=== PATIENT | female | born 1950 | race Caucasian/White ===

== ENCOUNTER 2017-09-01 15:03 | Outpatient (CLI) | payer MEDICARE, MEDICAID ==
[2017-09-01 17:24] LABS: Prothrombin Time 12.8 SEC (12.0-14.7)
[2017-09-01 17:40] LABS: Hemoglobin 10.9 g/dL (12.0-16.0); Mean Corpuscular HGB CONC 33.5 g/dL (32.0-36.0); Mean Corpuscular Hemoglobin 33.3 pg (27.0-31.0); Mean Corpuscular Volume 99.4 fl (81.0-99.0); Mean Platelet Volume 6.5 fL (7.4-10.4); Platelet Count 371 thou/uL (130-400); RBC Distribution Width 12.1 % (11.5-14.5); Red Blood Cell (RBC) Count 3.29 mill/uL (4.20-5.40); White Blood Cell (WBC) Count 11.7 thou/uL (4.8-10.8)
== END 2017-09-01 15:04 | disposition home or self-care (01) ==
LOC: MADLAB 15:03
PROVIDERS: ATTEND Family Medicine
DX: D64.9 Anemia, unspecified (principal)
CPT/HCPCS: 85027; 85610

== ENCOUNTER 2019-04-13 19:18 | Emergency (ER) | payer MEDICARE, MEDICAID ==
[2019-04-13] MEDS ORDERED: Sodium Chloride 0.9% 1,000 ML ONE ×2 (19:39→21:03)
[2019-04-13 19:58] LABS: #Basophils 0.1 thou/uL (0.0-0.2); #Lymphocytes 1.3 thou/uL (1.20-3.40); #Neutrophils 6.1 thou/uL (1.40-6.50); %Basophils 0.9 % (0.0-1.0); %Eosinophils 0.4 % (0.0-10.0); %Lymphocytes 15.5 % (21.0-51.0); %Monocytes 11.3 % (0.0-10.0); %Neutrophils 71.9 % (42.0-75.0); Mean Corpuscular HGB CONC 35.5 g/dL (32.0-36.0); Mean Corpuscular Hemoglobin 30.3 pg (27.0-31.0); Mean Corpuscular Volume 85.5 fL (78.0-98.0); Platelet Count 250 thou/uL (130-400); RBC Distribution Width 12.3 % (11.5-14.5); Red Blood Cell (RBC) Count 4.27 mill/uL (4.20-5.40); White Blood Cell (WBC) Count 8.5 thou/uL (4.8-10.8)
--- NOTE | 2019-04-13 20:07 | RAD ---
XR Chest 1 View Portable History: Altered mental status Comparison: Radiograph 2017 Findings: Progressive scarring lung apices. Heart size is enlarged. Mild pulmonary venous congestion. No acute osseous abnormality. Right reverse total shoulder arthroplasty. Impression: Cardiomegaly and mild pulmonary venous congestion.
--- NOTE | 2019-04-13 20:09 | CT ---
CT Brain WO Con History: Altered mental status Comparison: None. Findings: No acute hemorrhage or infarct. No midline shift or mass effect. 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 Subtle basal ganglia calcifications. Calvarium is intact. Paranasal sinuses and mastoids are clear. Globes are intact. Impression: No acute intracranial abnormality.
[2019-04-13 20:18] LABS: ALT (SGPT) 21 U/L (8-55); AST (SGOT) 44 U/L (5-34); Acetaminophen Less than 6.0 mcg/mL (10.0-30.0); Albumin 3.3 g/dL (3.4-4.8); Alcohol Less than 10 mg/dL (Less than 10); Alkaline Phosphatase 84 U/L (40-150); Anion Gap 21 mmol/L (10-20); BUN (Urea Nitrogen) 14 mg/dL (9.8-20.1); Bilirubin, Total 0.9 mg/dL (0.2-1.2); CK (CPK) 1126 U/L (29-168); Calc. Creatinine Clearance 0 mL/min (70-130); Calcium 7.4 mg/dL (7.8-10.44); Carbon Dioxide 24 mmol/L (23-31); Chloride 95 mmol/L (98-107); Estimated GFR-MDRD 22; Globulin 2.6 g/dL (2.4-3.5); Glucose 63 mg/dL (80-115); Protein, Total 5.9 g/dL (6.0-8.3); Salicylate Less than 8.0 mg/dL (15.0-30.0); Sodium 138 mmol/L (136-145)
[2019-04-13 20:36] LABS: Bilirubin Negative (Negative); Blood, Urine Moderate (Negative); Clarity Clear (Clear); Glucose, Urine (Dipstick) Negative (Negative); Leukocyte Negative (Negative); Nitrite Negative (Negative); Protein, Urine (Dipstick) 30 mg/dL (Neg-Trace); Urobilinogen 0.2 mg/dL (Less than 2)
[2019-04-13 20:39] LABS: Potassium 1.6 mmol/L (3.5-5.1)
[2019-04-13 20:42] LABS: Bacteria/HPF 1+ HPF (None Seen); Squamous Epithelial 0-3 HPF (0-3)
[2019-04-13 20:44] LABS: Amphetamine Not Detected (NotDetected); Barbiturates Screen Not Detected (NotDetected); Benzodiazepine Screen Not Detected (NotDetected); Cocaine Metabolite Screen Not Detected (NotDetected); Medtox Control Line Valid? VALID (VALID); Methadone Not Detected (NotDetected); Methamphetamine Not Detected (NotDetected); Opiate Screen Detected (NotDetected); Oxycodone Screen Not Detected (NotDetected); Phencyclidine (PCP) Not Detected (NotDetected); THC/Cannabinoid Screen Not Detected (NotDetected); Tricyclic Screen Not Detected (NotDetected)
[2019-04-13] MEDS ORDERED: Potassium Chloride 20 MEQ/100 ML PREMIX BAG ONE (21:03)
== END 2019-04-13 21:53 | disposition short-term general hospital (02) ==
LOC: MADERS 19:18
DX: T67.0XXA Heatstroke and sunstroke, initial encounter (principal); R50.9 Fever, unspecified; E87.6 Hypokalemia; M62.82 Rhabdomyolysis; M81.0 Age-related osteoporosis without current pathological fracture; E78.5 Hyperlipidemia, unspecified; E78.00 Pure hypercholesterolemia, unspecified; I10 Essential (primary) hypertension; J44.9 Chronic obstructive pulmonary disease, unspecified; D64.9 Anemia, unspecified; F41.9 Anxiety disorder, unspecified; F17.210 Nicotine dependence, cigarettes, uncomplicated; Z79.899 Other long term (current) drug therapy; Z79.82 Long term (current) use of aspirin; Z79.84 Long term (current) use of oral hypoglycemic drugs; Z79.51 Long term (current) use of inhaled steroids
CPT/HCPCS: 36415; 70450; 71045; 80053; 80306; 80307; 81003; 81015; 82550; 84443; 85025; 87040; 87077; 87086; 87186; 93005; 96361; 96365; J3480; J7050

== ENCOUNTER 2019-04-27 16:12 | Emergency (ER) | payer MEDICARE, OTHER ==
[~2019-04-27 16:12] MED LIST: Sodium Chloride 0.9% 100 ML BAG ONE
[2019-04-27 16:35] LABS: #Basophils 0.1 thou/uL (0.0-0.2); #Lymphocytes 1.5 thou/uL (1.20-3.40); #Neutrophils 5.5 thou/uL (1.40-6.50); %Basophils 1.3 % (0.0-1.0); %Eosinophils 0.3 % (0.0-10.0); %Lymphocytes 18.9 % (21.0-51.0); %Monocytes 11.7 % (0.0-10.0); %Neutrophils 67.8 % (42.0-75.0); Hemoglobin 13.7 g/dL (12.0-16.0); Mean Corpuscular HGB CONC 34.7 g/dL (32.0-36.0); Mean Corpuscular Hemoglobin 30.1 pg (27.0-31.0); Mean Platelet Volume 5.6 fL (7.4-10.4); Platelet Count 403 thou/uL (130-400); RBC Distribution Width 13.6 % (11.5-14.5); Red Blood Cell (RBC) Count 4.54 mill/uL (4.20-5.40); White Blood Cell (WBC) Count 8.1 thou/uL (4.8-10.8)
[2019-04-27] MEDS ORDERED: Sodium Chloride 0.9% 1,000 ML ONE ×2 (16:38→17:21)
[2019-04-27 17:03] LABS: ALT (SGPT) 17 U/L (8-55); AST (SGOT) 29 U/L (5-34); Albumin 3.6 g/dL (3.4-4.8); Alkaline Phosphatase 98 U/L (40-150); Anion Gap 25 mmol/L (10-20); BUN (Urea Nitrogen) 11 mg/dL (9.8-20.1); CK (CPK) 486 U/L (29-168); Calc. Creatinine Clearance 0 mL/min (70-130); Calcium 7.7 mg/dL (7.8-10.44); Carbon Dioxide 32 mmol/L (23-31); Chloride 77 mmol/L (98-107); Estimated GFR-MDRD 23; Globulin 2.9 g/dL (2.4-3.5); Glucose 83 mg/dL (80-115); Magnesium 1.7 mg/dL (1.6-2.6); Protein, Total 6.5 g/dL (6.0-8.3); Sodium 132 mmol/L (136-145)
[2019-04-27 17:05] LABS: Bilirubin Negative (Negative); Blood, Urine Moderate (Negative); Clarity Slightly Cloudy (Clear); Glucose, Urine (Dipstick) Negative (Negative); Leukocyte Trace (Negative); Nitrite Negative (Negative); Protein, Urine (Dipstick) 30 mg/dL (Neg-Trace); Urobilinogen 0.2 mg/dL (Less than 2)
[2019-04-27 17:16] LABS: Bacteria/HPF 4+ HPF (None Seen); RBC/HPF 0-3 HPF (0-3); Squamous Epithelial None Seen HPF (0-3)
--- NOTE | 2019-04-27 17:19 | RAD ---
Exam: Chest one view HISTORY:Altered mental status Comparison: 04/13/2019 FINDINGS: Cardiac silhouette: Normal Aorta: Atherosclerosis of the aortic knob Pulmonary vessels: Normal Costophrenic angles: Clear LUNGS: No masses or consolidation.. There are chronic changes. Stable right apical thickening. Pneumothorax: None Osseous abnormalities: None IMPRESSION: No acute cardiopulmonary process.
[2019-04-27] MEDS ORDERED: Calcium Gluc 4.6 MEQ/10 ML (100 MG/ML) ONE (17:21)
[2019-04-27 17:42] LABS: Potassium 1.7 mmol/L (3.5-5.1)
[2019-04-27] MEDS ORDERED: NS 0.9% w/ 40 MEQ KCL 1,000 ML IV ONE (17:53)
[2019-04-27] MEDS ORDERED: Potassium Chloride 10 MEQ TAB ONE (17:55)
[2019-04-27] MEDS ORDERED: cefTRIAXone\\ROCEPHIN 1 GM VIAL ONE (18:03)
== END 2019-04-27 18:32 | disposition short-term general hospital (02) ==
LOC: MADERS 16:12
DX: T67.5XXA Heat exhaustion, unspecified, initial encounter (principal); E83.51 Hypocalcemia; E87.1 Hypo-osmolality and hyponatremia; I49.3 Ventricular premature depolarization; M62.82 Rhabdomyolysis; E87.6 Hypokalemia; N30.90 Cystitis, unspecified without hematuria; M81.0 Age-related osteoporosis without current pathological fracture; E78.5 Hyperlipidemia, unspecified; I10 Essential (primary) hypertension; J44.9 Chronic obstructive pulmonary disease, unspecified; F41.9 Anxiety disorder, unspecified; F17.210 Nicotine dependence, cigarettes, uncomplicated; Z79.899 Other long term (current) drug therapy; Z79.84 Long term (current) use of oral hypoglycemic drugs
CPT/HCPCS: 51702; 71045; 80053; 81003; 81015; 82550; 83605; 83735; 84484; 85025; 93005; 96361; 96365; 96367; 96368; A4353; J0696; J3480; J3490; J7050

== ENCOUNTER 2020-06-08 20:49 | Emergency (ER) | payer MEDICARE, OTHER ==
--- NOTE | 2020-06-08 22:21 | CT ---
Exam: Head CT without contrast HISTORY: Worsening dizziness COMPARISON: 04/13/2019 FINDINGS: Hemorrhage: No intraparenchymal hemorrhage or extra-axial hematoma. Brain parenchyma: Cortical sibley-white matter differentiation is preserved. No mass effect or midline shift. Basilar cisterns are patent. Ventricular system: Ventricles and sulci are patent and symmetric. Calvarium: Intact. Sinuses and mastoid air cells: Adequate aeration. IMPRESSION: No acute intracranial process.
[2020-06-08 22:23] LABS: Hemoglobin 8.1 g/dL (12.0-16.0); Mean Corpuscular HGB CONC 30.5 g/dL (32.0-36.0); Mean Corpuscular Hemoglobin 24.8 pg (27.0-31.0); Mean Corpuscular Volume 81.4 fL (78.0-98.0); Mean Platelet Volume 5.4 fL (7.4-10.4); Platelet Count 602 thou/uL (130-400); RBC Distribution Width 15.4 % (11.5-14.5); Red Blood Cell (RBC) Count 3.28 mill/uL (4.20-5.40); White Blood Cell (WBC) Count 20.6 thou/uL (4.8-10.8)
[2020-06-08 22:32] LABS: ALT (SGPT) 17 U/L (8-55); AST (SGOT) 17 U/L (5-34); Albumin 3.4 g/dL (3.4-4.8); Alkaline Phosphatase 83 U/L (40-110); Anion Gap 17 mmol/L (10-20); BUN (Urea Nitrogen) 14 mg/dL (9.8-20.1); Bilirubin, Total 0.6 mg/dL (0.2-1.2); Calc. Creatinine Clearance 0 mL/min (70-130); Carbon Dioxide 22 mmol/L (23-31); Chloride 103 mmol/L (98-107); Estimated GFR-MDRD 24; Globulin 3.3 g/dL (2.4-3.5); Glucose 92 mg/dL (80-115); Magnesium 1.7 mg/dL (1.6-2.6); Protein, Total 6.7 g/dL (6.0-8.3); Sodium 140 mmol/L (136-145)
[2020-06-08 22:38] LABS: Hypochromia SLIGHT = 6-15 cells (100X) (0-5/hpf); Lymphocytes 4 % (21-51); MDiff Complete? YES; Monocytes 9 % (0-10); Neutrophil 87 % (42-75); Platelet Morphology Comment Appears Increased
--- NOTE | 2020-06-08 22:48 | RAD ---
Exam: Chest one view HISTORY:Cough. Elevated white blood cell count Comparison: 04/27/2019 FINDINGS: Cardiac silhouette: Normal Aorta: Atherosclerotic process Pulmonary vessels: Normal Costophrenic angles: Clear LUNGS: Chronic changes involving the lung apices. Pneumothorax: None Osseous abnormalities: Redemonstration of a right humeral prosthesis Incidentals: Loop recorder projects over the left hemithorax IMPRESSION: Chronic changes in the lung apices.
[2020-06-08 22:49] LABS: INR-International Normal Ratio 1.6; PTT 34.8 sec (22.9-36.1); Prothrombin Time 19.7 sec (12.0-14.7)
[2020-06-08 23:01] LABS: Bilirubin Negative (Negative); Blood, Urine Moderate (Negative); Clarity Clear (Clear); Glucose, Urine (Dipstick) Negative (Negative); Ketone, Urine Negative (Negative); Leukocyte Negative (Negative); Nitrite Negative (Negative); Protein, Urine (Dipstick) 100 mg/dL (Neg-Trace); Urobilinogen 0.2 mg/dL (Less than 2)
[2020-06-08 23:09] LABS: Bacteria/HPF 4+ HPF (None Seen); Mucous/LPF Rare LPF (<2+); RBC/HPF 0-3 HPF (0-3); Squamous Epithelial 0-3 HPF (0-3)
[2020-06-09 00:12] LABS: Anion Gap 18 mmol/L (10-20); BUN (Urea Nitrogen) 15 mg/dL (9.8-20.1); Calc. Creatinine Clearance 0 mL/min (70-130); Calcium 7.4 mg/dL (7.8-10.44); Carbon Dioxide 21 mmol/L (23-31); Chloride 104 mmol/L (98-107); Estimated GFR-MDRD 24; Glucose 92 mg/dL (80-115); Sodium 141 mmol/L (136-145)
[2020-06-09] MEDS ORDERED: Potassium Chloride 10 MEQ/100 ML PREMIX BAG ONE (00:15)
[2020-06-09 00:20] LABS: Critical Call Chemistry EMS.CLJ; Potassium 2.1 mmol/L (3.5-5.1)
[2020-06-09] MEDS ORDERED: Sodium Chloride 0.9% 250 ML 250 ML ONE (00:22)
[2020-06-09] MEDS ORDERED: Sodium Chloride 0.9% 1,000 ML ONE (00:59)
== END 2020-06-09 00:53 | disposition short-term general hospital (02) ==
LOC: MADERS 20:49
DX: D64.9 Anemia, unspecified (principal); N17.9 Acute kidney failure, unspecified; E87.6 Hypokalemia; E78.5 Hyperlipidemia, unspecified; I10 Essential (primary) hypertension; J44.9 Chronic obstructive pulmonary disease, unspecified; E78.00 Pure hypercholesterolemia, unspecified; I25.10 Atherosclerotic heart disease of native coronary artery without angina pectoris; F41.9 Anxiety disorder, unspecified; F17.210 Nicotine dependence, cigarettes, uncomplicated; Z79.84 Long term (current) use of oral hypoglycemic drugs; Z79.82 Long term (current) use of aspirin; Z79.899 Other long term (current) drug therapy
CPT/HCPCS: 36430; 51701; 70450; 71045; 80053; 81003; 81015; 82274; 83605; 83735; 83880; 84443; 84484; 85025; 85610; 85730; 86850; 86900; 86901; 87040; 87077; 87086; 87186; 93005; 96365; J3480; J7050; P9016

== ENCOUNTER 2020-09-29 12:58 | Emergency (ER) | payer MEDICARE, OTHER ==
[2020-09-29 14:14] LABS: #Basophils 0.2 thou/uL (0.0-0.2); #Eosinphils 0.5 thou/uL (0.0-0.7); #Monocytes 0.9 thou/uL (0.11-0.59); #Neutrophils 4.4 thou/uL (1.40-6.50); %Basophils 2.3 % (0.0-1.0); %Eosinophils 6.6 % (0.0-10.0); %Lymphocytes 24.9 % (21.0-51.0); %Monocytes 11.4 % (0.0-10.0); %Neutrophils 54.8 % (42.0-75.0); ALT (SGPT) 10 U/L (8-55); AST (SGOT) 15 U/L (5-34); Albumin 3.4 g/dL (3.4-4.8); Alkaline Phosphatase 101 U/L (40-110); Anion Gap 15 mmol/L (10-20); Anisocytosis SLIGHT = 6-15 cells (100X) (0-5/hpf); BUN (Urea Nitrogen) 11 mg/dL (9.8-20.1); Bilirubin, Total 0.6 mg/dL (0.2-1.2); Calc. Creatinine Clearance 0 mL/min (70-130); Calcium 8.4 mg/dL (7.8-10.44); Carbon Dioxide 29 mmol/L (23-31); Chloride 102 mmol/L (98-107); Globulin 2.9 g/dL (2.4-3.5); Glucose 92 mg/dL (80-115); Hemoglobin 9.3 g/dL (12.0-16.0); Hypochromia SLIGHT = 6-15 cells (100X) (0-5/hpf); MDiff Complete? YES; Mean Corpuscular HGB CONC 30.2 g/dL (32.0-36.0); Mean Platelet Volume 5.4 fL (7.4-10.4); Microcytosis SLIGHT = 6-15 cells (100X) (0-5/hpf); Platelet Count 679 thou/uL (130-400); Platelet Morphology Comment Appears Increased; Protein, Total 6.3 g/dL (5.8-8.1); RBC Distribution Width 16.3 % (11.5-14.5); Red Blood Cell (RBC) Count 4.22 mill/uL (4.20-5.40); Sodium 143 mmol/L (136-145); Target Cells SLIGHT = 2-5 cells (100X) (0-1/hpf)
--- NOTE | 2020-09-29 14:19 | RAD ---
Exam:4 views right knee HISTORY: Pain COMPARISON: 09/13/2019 FINDINGS: Uncomplicated right knee arthroplasty. No perihardware lucency. There is a small joint effu rose. No fracture. IMPRESSION: Joint effusion. No fracture or perihardware lucency. Additional imaging as warranted.
[2020-09-29 14:32] LABS: Potassium 2.9 mmol/L (3.5-5.1)
[2020-09-29] MEDS ORDERED: Potassium Chloride 20 MEQ TAB ONE (18:21)
== END 2020-09-29 18:33 | disposition short-term general hospital (02) ==
LOC: MADERS 12:58
DX: T81.31XA Disruption of external operation (surgical) wound, not elsewhere classified, initial encounter (principal); R60.0 Localized edema; M81.0 Age-related osteoporosis without current pathological fracture; E78.5 Hyperlipidemia, unspecified; E78.00 Pure hypercholesterolemia, unspecified; I10 Essential (primary) hypertension; J44.9 Chronic obstructive pulmonary disease, unspecified; E55.9 Vitamin D deficiency, unspecified; I25.10 Atherosclerotic heart disease of native coronary artery without angina pectoris; D64.9 Anemia, unspecified; F17.210 Nicotine dependence, cigarettes, uncomplicated; R73.03 Prediabetes; Z79.899 Other long term (current) drug therapy; Z79.82 Long term (current) use of aspirin; Z79.84 Long term (current) use of oral hypoglycemic drugs; Z79.01 Long term (current) use of anticoagulants
CPT/HCPCS: 80053; 83605; 83735; 85025; 86140; 93005

== ENCOUNTER 2021-07-23 17:43 | Inpatient (IN) | payer MEDICARE, OTHER ==
[2021-07-23] MEDS ORDERED: Loperamide HCl 2 MG CAP PO PRN (19:02)
[2021-07-23] MEDS ORDERED: Ondansetron ODT 4 MG TAB PO PRN (19:02)
[2021-07-23] MEDS ORDERED: Albuterol Sulfate 2.5 mg/3 ml Neb NEB PRN (19:19)
[2021-07-23] MEDS ORDERED: tiZANidine HCl 4 MG TAB PO PRN (19:28)
[2021-07-23] MEDS: metroNIDAZOLE 250 MG TAB PO SCH (20:57)
[2021-07-23] MEDS: Potassium Chloride 20 MEQ TAB PO SCH (20:57)
[2021-07-23] MEDS: Rosuvastatin 10 MG TAB PO SCH (20:57)
[2021-07-23] MEDS: Apixaban 5 MG TAB PO SCH (20:58)
[2021-07-23] MEDS: Ciprofloxacin 500 MG TAB PO SCH (20:58)
[2021-07-23] MEDS: sulfaSALAzine 500 MG TAB PO SCH (20:58)
[2021-07-23] MEDS: Gabapentin 300 MG CAP PO SCH (20:58)
[2021-07-23] MEDS: Mometasone/Formoterol 200/5 60 PUFF INH SCH (20:59)
[2021-07-23] MEDS: Ferrous Sulfate 325 MG TAB PO SCH (23:16)
[2021-07-24] MEDS: Ciprofloxacin 500 MG TAB PO SCH ×2 (05:28→20:38)
[2021-07-24] MEDS: Furosemide 20 MG TAB PO SCH (09:22)
[2021-07-24] MEDS: Apixaban 5 MG TAB PO SCH ×2 (09:22→20:39)
[2021-07-24] MEDS: Ferrous Sulfate 325 MG TAB PO SCH ×2 (09:22→20:39)
[2021-07-24] MEDS: Montelukast Sodium 10 mg Tablet PO SCH (09:22)
[2021-07-24] MEDS: predniSONE 5 MG TAB PO SCH (09:22)
[2021-07-24] MEDS: Aspirin 81 mg Enteric Coated Tablet PO SCH (09:22)
[2021-07-24] MEDS: Doxepin HCl 25 MG CAP PO SCH (09:22)
[2021-07-24] MEDS: Mometasone/Formoterol 200/5 60 PUFF INH SCH ×2 (09:24→20:45)
[2021-07-24] MEDS: Gabapentin 300 MG CAP PO SCH ×3 (09:25→20:39)
[2021-07-24] MEDS: Cholecalciferol (Vitamin D3) 400 UNITS TAB PO SCH (09:25)
[2021-07-24] MEDS: Potassium Chloride 20 MEQ TAB PO SCH ×2 (09:25→20:49)
[2021-07-24] MEDS: metFORMIN 500 MG TAB PO SCH (09:26)
[2021-07-24] MEDS: DULoxetine 30 MG CAP PO SCH (09:26)
[2021-07-24] MEDS: metroNIDAZOLE 250 MG TAB PO SCH ×3 (09:26→20:43)
[2021-07-24] MEDS: Folic Acid 1 MG TAB PO SCH (09:26)
[2021-07-24] MEDS: sulfaSALAzine 500 MG TAB PO SCH ×2 (09:30→20:42)
[2021-07-24] MEDS: Rosuvastatin 10 MG TAB PO SCH (20:50)
[2021-07-25] MEDS: Ciprofloxacin 500 MG TAB PO SCH ×3 (07:17→20:19)
[2021-07-25] MEDS: Ferrous Sulfate 325 MG TAB PO SCH ×2 (08:29→20:19)
[2021-07-25] MEDS: DULoxetine 30 MG CAP PO SCH (08:29)
[2021-07-25] MEDS: Aspirin 81 mg Enteric Coated Tablet PO SCH (08:29)
[2021-07-25] MEDS: Potassium Chloride 20 MEQ TAB PO SCH ×2 (08:29→20:19)
[2021-07-25] MEDS: Folic Acid 1 MG TAB PO SCH (08:29)
[2021-07-25] MEDS: Apixaban 5 MG TAB PO SCH ×2 (08:29→20:18)
[2021-07-25] MEDS: Cholecalciferol (Vitamin D3) 400 UNITS TAB PO SCH (08:29)
[2021-07-25] MEDS: metFORMIN 500 MG TAB PO SCH (08:29)
[2021-07-25] MEDS: metroNIDAZOLE 250 MG TAB PO SCH ×3 (08:29→20:21)
[2021-07-25] MEDS: Mometasone/Formoterol 200/5 60 PUFF INH SCH ×2 (08:30→20:18)
[2021-07-25] MEDS: Doxepin HCl 25 MG CAP PO SCH (08:37)
[2021-07-25] MEDS: predniSONE 5 MG TAB PO SCH (08:37)
[2021-07-25] MEDS: Gabapentin 300 MG CAP PO SCH ×3 (08:37→20:19)
[2021-07-25] MEDS: Montelukast Sodium 10 mg Tablet PO SCH (08:37)
[2021-07-25] MEDS: Furosemide 20 MG TAB PO SCH (08:37)
[2021-07-25] MEDS: sulfaSALAzine 500 MG TAB PO SCH ×2 (08:40→20:22)
[2021-07-25 16:16] LABS: SARS-CoV-2 PCR by NAA Not Detected (NotDetected)
[2021-07-25] MEDS: Rosuvastatin 10 MG TAB PO SCH (20:21)
[2021-07-26] MEDS: Ciprofloxacin 500 MG TAB PO SCH ×2 (05:52→20:00)
[2021-07-26] MEDS: Mometasone/Formoterol 200/5 60 PUFF INH SCH ×2 (08:51→20:01)
[2021-07-26] MEDS: Apixaban 5 MG TAB PO SCH ×2 (08:52→19:59)
[2021-07-26] MEDS: Gabapentin 300 MG CAP PO SCH ×3 (08:52→20:00)
[2021-07-26] MEDS: Ferrous Sulfate 325 MG TAB PO SCH ×2 (08:52→20:00)
[2021-07-26] MEDS: Aspirin 81 mg Enteric Coated Tablet PO SCH (08:52)
[2021-07-26] MEDS: Folic Acid 1 MG TAB PO SCH (08:53)
[2021-07-26] MEDS: metroNIDAZOLE 250 MG TAB PO SCH ×3 (08:53→20:00)
[2021-07-26] MEDS: Furosemide 20 MG TAB PO SCH (08:53)
[2021-07-26] MEDS: sulfaSALAzine 500 MG TAB PO SCH ×2 (08:53→20:01)
[2021-07-26] MEDS: predniSONE 5 MG TAB PO SCH (08:53)
[2021-07-26] MEDS: metFORMIN 500 MG TAB PO SCH (08:53)
[2021-07-26] MEDS: DULoxetine 30 MG CAP PO SCH (08:53)
[2021-07-26] MEDS: Potassium Chloride 20 MEQ TAB PO SCH ×2 (08:53→20:00)
[2021-07-26] MEDS: Montelukast Sodium 10 mg Tablet PO SCH (08:54)
[2021-07-26] MEDS: Doxepin HCl 25 MG CAP PO SCH (08:54)
[2021-07-26] MEDS: Cholecalciferol (Vitamin D3) 400 UNITS TAB PO SCH (08:54)
[2021-07-26] MEDS: Rosuvastatin 10 MG TAB PO SCH (20:00)
[2021-07-27] MEDS: Ciprofloxacin 500 MG TAB PO SCH ×2 (05:19→20:11)
[2021-07-27] MEDS: Furosemide 20 MG TAB PO SCH (08:36)
[2021-07-27] MEDS: metroNIDAZOLE 250 MG TAB PO SCH ×3 (08:36→20:11)
[2021-07-27] MEDS: DULoxetine 30 MG CAP PO SCH (08:37)
[2021-07-27] MEDS: metFORMIN 500 MG TAB PO SCH (08:37)
[2021-07-27] MEDS: Montelukast Sodium 10 mg Tablet PO SCH (08:37)
[2021-07-27] MEDS: Cholecalciferol (Vitamin D3) 400 UNITS TAB PO SCH (08:37)
[2021-07-27] MEDS: Potassium Chloride 20 MEQ TAB PO SCH ×2 (08:37→20:11)
[2021-07-27] MEDS: sulfaSALAzine 500 MG TAB PO SCH ×2 (08:37→20:11)
[2021-07-27] MEDS: Aspirin 81 mg Enteric Coated Tablet PO SCH (08:37)
[2021-07-27] MEDS: Ferrous Sulfate 325 MG TAB PO SCH ×2 (08:37→20:11)
[2021-07-27] MEDS: Folic Acid 1 MG TAB PO SCH (08:37)
[2021-07-27] MEDS: predniSONE 5 MG TAB PO SCH (08:38)
[2021-07-27] MEDS: Doxepin HCl 25 MG CAP PO SCH (08:38)
[2021-07-27] MEDS: Mometasone/Formoterol 200/5 60 PUFF INH SCH ×2 (08:38→22:47)
[2021-07-27] MEDS: Apixaban 5 MG TAB PO SCH ×2 (08:38→20:10)
[2021-07-27] MEDS: Acetaminophen 325 MG TAB PO PRN (08:41)
[2021-07-27] MEDS: Gabapentin 300 MG CAP PO SCH ×3 (08:50→20:10)
[2021-07-27] MEDS: Rosuvastatin 10 MG TAB PO SCH (20:09)
[2021-07-28] MEDS: Ciprofloxacin 500 MG TAB PO SCH ×2 (06:02→20:44)
[2021-07-28] MEDS: Loperamide HCl 2 MG CAP PO PRN ×2 (06:33→13:46)
[2021-07-28] MEDS: Gabapentin 300 MG CAP PO SCH ×3 (08:57→20:46)
[2021-07-28] MEDS: predniSONE 5 MG TAB PO SCH (08:58)
[2021-07-28] MEDS: DULoxetine 30 MG CAP PO SCH (08:58)
[2021-07-28] MEDS: sulfaSALAzine 500 MG TAB PO SCH ×2 (08:58→20:47)
[2021-07-28] MEDS: Montelukast Sodium 10 mg Tablet PO SCH (08:58)
[2021-07-28] MEDS: Furosemide 20 MG TAB PO SCH (08:58)
[2021-07-28] MEDS: Cholecalciferol (Vitamin D3) 400 UNITS TAB PO SCH (08:58)
[2021-07-28] MEDS: Aspirin 81 mg Enteric Coated Tablet PO SCH (09:00)
[2021-07-28] MEDS: Ferrous Sulfate 325 MG TAB PO SCH ×2 (09:00→20:46)
[2021-07-28] MEDS: Folic Acid 1 MG TAB PO SCH (09:00)
[2021-07-28] MEDS: Potassium Chloride 20 MEQ TAB PO SCH ×2 (09:00→20:44)
[2021-07-28] MEDS: metroNIDAZOLE 250 MG TAB PO SCH ×3 (09:00→20:45)
[2021-07-28] MEDS: Doxepin HCl 25 MG CAP PO SCH (09:00)
[2021-07-28] MEDS: metFORMIN 500 MG TAB PO SCH (09:00)
[2021-07-28] MEDS: Apixaban 5 MG TAB PO SCH ×2 (09:01→20:47)
[2021-07-28] MEDS: Mometasone/Formoterol 200/5 60 PUFF INH SCH ×2 (09:01→20:48)
[2021-07-28] MEDS: Rosuvastatin 10 MG TAB PO SCH (20:45)
[2021-07-29] MEDS: Ciprofloxacin 500 MG TAB PO SCH ×2 (05:58→20:08)
[2021-07-29] MEDS: Mometasone/Formoterol 200/5 60 PUFF INH SCH ×2 (08:45→20:09)
[2021-07-29] MEDS: Ferrous Sulfate 325 MG TAB PO SCH ×2 (08:45→20:08)
[2021-07-29] MEDS: sulfaSALAzine 500 MG TAB PO SCH ×2 (08:45→20:07)
[2021-07-29] MEDS: metroNIDAZOLE 250 MG TAB PO SCH ×3 (08:45→20:05)
[2021-07-29] MEDS: Montelukast Sodium 10 mg Tablet PO SCH (08:45)
[2021-07-29] MEDS: Doxepin HCl 25 MG CAP PO SCH (08:45)
[2021-07-29] MEDS: Folic Acid 1 MG TAB PO SCH (08:46)
[2021-07-29] MEDS: Furosemide 20 MG TAB PO SCH (08:46)
[2021-07-29] MEDS: Apixaban 5 MG TAB PO SCH ×2 (08:46→20:07)
[2021-07-29] MEDS: Cholecalciferol (Vitamin D3) 400 UNITS TAB PO SCH (08:46)
[2021-07-29] MEDS: Aspirin 81 mg Enteric Coated Tablet PO SCH (08:47)
[2021-07-29] MEDS: Potassium Chloride 20 MEQ TAB PO SCH ×2 (08:47→20:08)
[2021-07-29] MEDS: metFORMIN 500 MG TAB PO SCH (08:47)
[2021-07-29] MEDS: DULoxetine 30 MG CAP PO SCH (08:47)
[2021-07-29] MEDS: predniSONE 5 MG TAB PO SCH (08:47)
[2021-07-29] MEDS: Gabapentin 300 MG CAP PO SCH ×3 (08:50→20:06)
[2021-07-29] MEDS ORDERED: Loperamide HCl 2 MG CAP PO SCH (11:45)
[2021-07-29] MEDS: Acetaminophen 325 MG TAB PO PRN (20:03)
[2021-07-29] MEDS: Rosuvastatin 10 MG TAB PO SCH (20:05)
[2021-07-30] MEDS: Acetaminophen 325 MG TAB PO PRN (05:12)
[2021-07-30] MEDS: Ciprofloxacin 500 MG TAB PO SCH ×2 (05:13→20:19)
[2021-07-30] MEDS: Loperamide HCl 2 MG CAP PO PRN ×2 (07:05→08:56)
[2021-07-30] MEDS: Apixaban 5 MG TAB PO SCH ×2 (08:56→21:33)
[2021-07-30] MEDS: sulfaSALAzine 500 MG TAB PO SCH ×2 (08:56→21:31)
[2021-07-30] MEDS: Potassium Chloride 20 MEQ TAB PO SCH ×2 (08:56→21:33)
[2021-07-30] MEDS: Gabapentin 300 MG CAP PO SCH ×3 (08:57→21:34)
[2021-07-30] MEDS: Aspirin 81 mg Enteric Coated Tablet PO SCH (08:57)
[2021-07-30] MEDS: DULoxetine 30 MG CAP PO SCH (08:57)
[2021-07-30] MEDS: Montelukast Sodium 10 mg Tablet PO SCH (08:57)
[2021-07-30] MEDS: predniSONE 5 MG TAB PO SCH (08:58)
[2021-07-30] MEDS: Ferrous Sulfate 325 MG TAB PO SCH ×2 (08:58→21:33)
[2021-07-30] MEDS: metFORMIN 500 MG TAB PO SCH (08:58)
[2021-07-30] MEDS: metroNIDAZOLE 250 MG TAB PO SCH ×3 (08:58→21:32)
[2021-07-30] MEDS: Folic Acid 1 MG TAB PO SCH (08:58)
[2021-07-30] MEDS: Doxepin HCl 25 MG CAP PO SCH (08:58)
[2021-07-30] MEDS: Furosemide 20 MG TAB PO SCH (08:58)
[2021-07-30] MEDS: Cholecalciferol (Vitamin D3) 400 UNITS TAB PO SCH (08:59)
[2021-07-30] MEDS: Mometasone/Formoterol 200/5 60 PUFF INH SCH ×2 (09:04→21:31)
[2021-07-30] MEDS: Rosuvastatin 10 MG TAB PO SCH (21:32)
[2021-07-30] MEDS ORDERED: Acetaminophen 325 MG TAB PO PRN (21:52)
[2021-07-31] MEDS: Ciprofloxacin 500 MG TAB PO SCH ×2 (05:10→20:09)
[2021-07-31] MEDS: Loperamide HCl 2 MG CAP PO PRN (05:40)
[2021-07-31] MEDS: Mometasone/Formoterol 200/5 60 PUFF INH SCH ×2 (08:43→20:06)
[2021-07-31] MEDS: DULoxetine 30 MG CAP PO SCH (08:44)
[2021-07-31] MEDS: Aspirin 81 mg Enteric Coated Tablet PO SCH (08:44)
[2021-07-31] MEDS: Cholecalciferol (Vitamin D3) 400 UNITS TAB PO SCH (08:44)
[2021-07-31] MEDS: Gabapentin 300 MG CAP PO SCH ×3 (08:44→20:04)
[2021-07-31] MEDS: metFORMIN 500 MG TAB PO SCH (08:45)
[2021-07-31] MEDS: Potassium Chloride 20 MEQ TAB PO SCH ×2 (08:45→20:05)
[2021-07-31] MEDS: Furosemide 20 MG TAB PO SCH (08:45)
[2021-07-31] MEDS: metroNIDAZOLE 250 MG TAB PO SCH ×3 (08:45→20:04)
[2021-07-31] MEDS: Doxepin HCl 25 MG CAP PO SCH (08:45)
[2021-07-31] MEDS: Ferrous Sulfate 325 MG TAB PO SCH ×2 (08:46→20:09)
[2021-07-31] MEDS: Montelukast Sodium 10 mg Tablet PO SCH (08:46)
[2021-07-31] MEDS: predniSONE 5 MG TAB PO SCH (08:46)
[2021-07-31] MEDS: sulfaSALAzine 500 MG TAB PO SCH ×2 (08:46→20:08)
[2021-07-31] MEDS: Folic Acid 1 MG TAB PO SCH (08:46)
[2021-07-31] MEDS: Apixaban 5 MG TAB PO SCH ×2 (08:46→20:09)
[2021-07-31] MEDS: Rosuvastatin 10 MG TAB PO SCH (20:11)
[2021-08-01] MEDS: Ciprofloxacin 500 MG TAB PO SCH ×2 (05:31→19:40)
[2021-08-01] MEDS: Aspirin 81 mg Enteric Coated Tablet PO SCH (08:27)
[2021-08-01] MEDS: Gabapentin 300 MG CAP PO SCH ×3 (08:27→20:40)
[2021-08-01] MEDS: DULoxetine 30 MG CAP PO SCH (08:28)
[2021-08-01] MEDS: Cholecalciferol (Vitamin D3) 400 UNITS TAB PO SCH (08:29)
[2021-08-01] MEDS: Folic Acid 1 MG TAB PO SCH (08:29)
[2021-08-01] MEDS: Loperamide HCl 2 MG CAP PO PRN (08:29)
[2021-08-01] MEDS: Montelukast Sodium 10 mg Tablet PO SCH (08:29)
[2021-08-01] MEDS: Furosemide 20 MG TAB PO SCH (08:29)
[2021-08-01] MEDS: metroNIDAZOLE 250 MG TAB PO SCH ×3 (08:29→20:41)
[2021-08-01] MEDS: Doxepin HCl 25 MG CAP PO SCH (08:30)
[2021-08-01] MEDS: Potassium Chloride 20 MEQ TAB PO SCH ×2 (08:30→20:42)
[2021-08-01] MEDS: predniSONE 5 MG TAB PO SCH (08:30)
[2021-08-01] MEDS: metFORMIN 500 MG TAB PO SCH (08:30)
[2021-08-01] MEDS: Apixaban 5 MG TAB PO SCH ×2 (08:30→20:42)
[2021-08-01] MEDS: Ferrous Sulfate 325 MG TAB PO SCH ×2 (08:30→20:42)
[2021-08-01] MEDS: sulfaSALAzine 500 MG TAB PO SCH ×2 (08:30→20:40)
[2021-08-01] MEDS: Mometasone/Formoterol 200/5 60 PUFF INH SCH ×2 (08:31→20:35)
[2021-08-01] MEDS: Rosuvastatin 10 MG TAB PO SCH (20:43)
[2021-08-02 05:20] LABS: #Basophils 0.2 thou/uL (0.0-0.2); #Eosinphils 0.2 thou/uL (0.0-0.7); #Lymphocytes 2.6 thou/uL (1.20-3.40); #Monocytes 0.9 thou/uL (0.11-0.59); #Neutrophils 5.7 thou/uL (1.40-6.50); %Basophils 1.8 % (0.0-1.0); %Eosinophils 2.4 % (0.0-10.0); %Lymphocytes 26.7 % (21.0-51.0); %Monocytes 9.3 % (0.0-10.0); %Neutrophils 59.8 % (42.0-75.0); Hemoglobin 11.4 g/dL (12.0-16.0); Mean Corpuscular Hemoglobin 31.3 pg (27.0-31.0); Mean Corpuscular Volume 101.1 fL (78.0-98.0); Mean Platelet Volume 5.1 fL (7.4-10.4); Platelet Count 705 thou/uL (130-400); RBC Distribution Width 12.4 % (11.5-14.5); Red Blood Cell (RBC) Count 3.62 mill/uL (4.20-5.40); White Blood Cell (WBC) Count 9.6 thou/uL (4.8-10.8)
[2021-08-02 05:31] LABS: Anion Gap 13 mmol/L (10-20); BUN (Urea Nitrogen) 11 mg/dL (9.8-20.1); Calc. Creatinine Clearance 46 mL/min (70-130); Calcium 9.4 mg/dL (7.8-10.44); Carbon Dioxide 35 mmol/L (23-31); Chloride 97 mmol/L (98-107); Glucose 87 mg/dL (80-115); Potassium 3.9 mmol/L (3.5-5.1); Sodium 141 mmol/L (136-145)
[2021-08-02] MEDS: Ciprofloxacin 500 MG TAB PO SCH ×2 (06:40→20:22)
[2021-08-02] MEDS: Gabapentin 300 MG CAP PO SCH ×3 (08:37→20:23)
[2021-08-02] MEDS: Doxepin HCl 25 MG CAP PO SCH (08:37)
[2021-08-02] MEDS: Ferrous Sulfate 325 MG TAB PO SCH ×2 (08:37→20:23)
[2021-08-02] MEDS: Furosemide 20 MG TAB PO SCH (08:37)
[2021-08-02] MEDS: Potassium Chloride 20 MEQ TAB PO SCH ×2 (08:39→20:25)
[2021-08-02] MEDS: predniSONE 5 MG TAB PO SCH (08:39)
[2021-08-02] MEDS: Montelukast Sodium 10 mg Tablet PO SCH (08:39)
[2021-08-02] MEDS: Cholecalciferol (Vitamin D3) 400 UNITS TAB PO SCH (08:39)
[2021-08-02] MEDS: sulfaSALAzine 500 MG TAB PO SCH ×2 (08:39→20:25)
[2021-08-02] MEDS: Apixaban 5 MG TAB PO SCH ×2 (08:39→20:22)
[2021-08-02] MEDS: DULoxetine 30 MG CAP PO SCH (08:39)
[2021-08-02] MEDS: Aspirin 81 mg Enteric Coated Tablet PO SCH (08:40)
[2021-08-02] MEDS: metroNIDAZOLE 250 MG TAB PO SCH ×3 (08:40→20:24)
[2021-08-02] MEDS: metFORMIN 500 MG TAB PO SCH (08:40)
[2021-08-02] MEDS: Mometasone/Formoterol 200/5 60 PUFF INH SCH ×2 (08:41→20:24)
[2021-08-02] MEDS: Folic Acid 1 MG TAB PO SCH (08:42)
[2021-08-02 12:38] VITALS: BMI 25.2
[2021-08-02] MEDS: Rosuvastatin 10 MG TAB PO SCH (20:25)
[2021-08-03] MEDS: Mometasone/Formoterol 200/5 60 PUFF INH SCH ×2 (08:14→20:47)
[2021-08-03] MEDS: Folic Acid 1 MG TAB PO SCH (08:15)
[2021-08-03] MEDS: Aspirin 81 mg Enteric Coated Tablet PO SCH (08:15)
[2021-08-03] MEDS: Gabapentin 300 MG CAP PO SCH ×3 (08:15→20:46)
[2021-08-03] MEDS: Montelukast Sodium 10 mg Tablet PO SCH (08:15)
[2021-08-03] MEDS: predniSONE 5 MG TAB PO SCH (08:15)
[2021-08-03] MEDS: DULoxetine 30 MG CAP PO SCH (08:15)
[2021-08-03] MEDS: metFORMIN 500 MG TAB PO SCH (08:15)
[2021-08-03] MEDS: Potassium Chloride 20 MEQ TAB PO SCH ×2 (08:16→20:47)
[2021-08-03] MEDS: Cholecalciferol (Vitamin D3) 400 UNITS TAB PO SCH (08:16)
[2021-08-03] MEDS: Ferrous Sulfate 325 MG TAB PO SCH ×2 (08:16→20:46)
[2021-08-03] MEDS: Apixaban 5 MG TAB PO SCH ×2 (08:16→20:47)
[2021-08-03] MEDS: Furosemide 20 MG TAB PO SCH (08:16)
[2021-08-03] MEDS: Doxepin HCl 25 MG CAP PO SCH (08:18)
[2021-08-03 17:13] LABS: SARS-CoV-2 PCR by NAA Not Detected (NotDetected)
[2021-08-03] MEDS: Rosuvastatin 10 MG TAB PO SCH (20:47)
[2021-08-04] MEDS: Loperamide HCl 2 MG CAP PO PRN ×2 (03:43→11:53)
[2021-08-04] MEDS: Mometasone/Formoterol 200/5 60 PUFF INH SCH ×2 (08:12→21:03)
[2021-08-04] MEDS: Doxepin HCl 25 MG CAP PO SCH (08:13)
[2021-08-04] MEDS: Gabapentin 300 MG CAP PO SCH ×3 (08:13→21:02)
[2021-08-04] MEDS: Furosemide 20 MG TAB PO SCH (08:13)
[2021-08-04] MEDS: Apixaban 5 MG TAB PO SCH ×2 (08:13→21:03)
[2021-08-04] MEDS: Aspirin 81 mg Enteric Coated Tablet PO SCH (08:13)
[2021-08-04] MEDS: DULoxetine 30 MG CAP PO SCH (08:13)
[2021-08-04] MEDS: Potassium Chloride 20 MEQ TAB PO SCH ×2 (08:14→21:03)
[2021-08-04] MEDS: predniSONE 5 MG TAB PO SCH (08:14)
[2021-08-04] MEDS: metFORMIN 500 MG TAB PO SCH (08:14)
[2021-08-04] MEDS: Montelukast Sodium 10 mg Tablet PO SCH (08:14)
[2021-08-04] MEDS: Ferrous Sulfate 325 MG TAB PO SCH ×2 (08:14→21:03)
[2021-08-04] MEDS: Cholecalciferol (Vitamin D3) 400 UNITS TAB PO SCH (08:14)
[2021-08-04] MEDS: Folic Acid 1 MG TAB PO SCH (08:14)
[2021-08-04] MEDS: Rosuvastatin 10 MG TAB PO SCH (21:02)
[2021-08-05 05:19] LABS: Hemoglobin 11.7 g/dL (12.0-16.0); Platelet Count 626 thou/uL (130-400)
[2021-08-05] MEDS: Mometasone/Formoterol 200/5 60 PUFF INH SCH ×2 (08:36→20:45)
[2021-08-05] MEDS: Ferrous Sulfate 325 MG TAB PO SCH ×2 (08:37→20:34)
[2021-08-05] MEDS: Potassium Chloride 20 MEQ TAB PO SCH ×2 (08:37→20:34)
[2021-08-05] MEDS: predniSONE 5 MG TAB PO SCH (08:37)
[2021-08-05] MEDS: Furosemide 20 MG TAB PO SCH (08:37)
[2021-08-05] MEDS: Cholecalciferol (Vitamin D3) 400 UNITS TAB PO SCH (08:37)
[2021-08-05] MEDS: Apixaban 5 MG TAB PO SCH ×2 (08:37→20:34)
[2021-08-05] MEDS: Aspirin 81 mg Enteric Coated Tablet PO SCH (08:38)
[2021-08-05] MEDS: Montelukast Sodium 10 mg Tablet PO SCH (08:38)
[2021-08-05] MEDS: Gabapentin 300 MG CAP PO SCH ×3 (08:38→20:34)
[2021-08-05] MEDS: DULoxetine 30 MG CAP PO SCH (08:38)
[2021-08-05] MEDS: Folic Acid 1 MG TAB PO SCH (08:38)
[2021-08-05] MEDS: metFORMIN 500 MG TAB PO SCH (08:38)
[2021-08-05] MEDS: Doxepin HCl 25 MG CAP PO SCH (08:38)
[2021-08-05] MEDS: Rosuvastatin 10 MG TAB PO SCH (20:34)
[2021-08-06] MEDS: Mometasone/Formoterol 200/5 60 PUFF INH SCH (08:30)
[2021-08-06] MEDS: Gabapentin 300 MG CAP PO SCH ×2 (08:31→15:26)
[2021-08-06] MEDS: Potassium Chloride 20 MEQ TAB PO SCH (08:31)
[2021-08-06] MEDS: predniSONE 5 MG TAB PO SCH (08:31)
[2021-08-06] MEDS: Montelukast Sodium 10 mg Tablet PO SCH (08:31)
[2021-08-06] MEDS: Furosemide 20 MG TAB PO SCH (08:31)
[2021-08-06] MEDS: Cholecalciferol (Vitamin D3) 400 UNITS TAB PO SCH (08:32)
[2021-08-06] MEDS: Apixaban 5 MG TAB PO SCH (08:32)
[2021-08-06] MEDS: Ferrous Sulfate 325 MG TAB PO SCH (08:32)
[2021-08-06] MEDS: Doxepin HCl 25 MG CAP PO SCH (08:32)
[2021-08-06] MEDS: Folic Acid 1 MG TAB PO SCH (08:32)
[2021-08-06] MEDS: Aspirin 81 mg Enteric Coated Tablet PO SCH (08:32)
[2021-08-06] MEDS: DULoxetine 30 MG CAP PO SCH (08:32)
[2021-08-06] MEDS: metFORMIN 500 MG TAB PO SCH (08:33)
[2021-08-06] MEDS: Loperamide HCl 2 MG CAP PO PRN (10:57)
[2021-08-06 13:33] VITALS: BP 90/54; TEMP 98.4
== END 2021-08-06 17:58 | disposition home health service (06) | DRG 372 ==
LOC: MADMS 17:43
PROVIDERS: ADMIT Family Medicine; ATTEND Family Medicine
DX: A04.5 Campylobacter enteritis (principal); N39.0 Urinary tract infection, site not specified; I50.32 Chronic diastolic (congestive) heart failure; Z20.822 Contact with and (suspected) exposure to COVID-19; R53.81 Other malaise; I11.0 Hypertensive heart disease with heart failure; I48.91 Unspecified atrial fibrillation; I25.10 Atherosclerotic heart disease of native coronary artery without angina pectoris; E78.5 Hyperlipidemia, unspecified; J44.9 Chronic obstructive pulmonary disease, unspecified; F17.210 Nicotine dependence, cigarettes, uncomplicated; G89.29 Other chronic pain; E11.42 Type 2 diabetes mellitus with diabetic polyneuropathy; Z96.651 Presence of right artificial knee joint; F41.9 Anxiety disorder, unspecified; Z96.611 Presence of right artificial shoulder joint; M81.0 Age-related osteoporosis without current pathological fracture; Z88.1 Allergy status to other antibiotic agents; Z90.49 Acquired absence of other specified parts of digestive tract
CPT/HCPCS: 36416; 80048; 82565; 85014; 85018; 85025; 85049; 94664; J7512; Q0162; U0003; U0005

== ENCOUNTER 2021-09-22 15:05 | Inpatient (IN) | payer OTHER ==
[2021-09-22] MEDS ORDERED: Calcium Carbonate 500 MG ChewTAB PO PRN (20:22)
[2021-09-22] MEDS ORDERED: Ondansetron ODT 4 MG TAB PO PRN (20:22)
[2021-09-22] MEDS ORDERED: Senokot S 8.6-50 MG TAB PO PRN (20:22)
[2021-09-22] MEDS: Gabapentin 300 MG CAP PO SCH (21:41)
[2021-09-22] MEDS: Ferrous Sulfate 325 MG TAB PO SCH (21:41)
[2021-09-22] MEDS: Apixaban 5 MG TAB PO SCH (21:41)
[2021-09-22] MEDS: Rosuvastatin 10 MG TAB PO SCH (21:41)
[2021-09-23] MEDS: Acetaminophen 325 MG TAB PO PRN (05:48)
[2021-09-23] MEDS: DULoxetine 30 MG CAP PO SCH (08:37)
[2021-09-23] MEDS: Potassium Chloride 20 MEQ TAB PO SCH (08:37)
[2021-09-23] MEDS: Cholecalciferol (Vitamin D3) 400 UNITS TAB PO SCH (08:37)
[2021-09-23] MEDS: Folic Acid 1 MG TAB PO SCH (08:37)
[2021-09-23] MEDS: Magnesium Oxide 400 MG TAB PO SCH (08:37)
[2021-09-23] MEDS: Dronedarone HCl 400 MG TAB PO SCH ×2 (08:38→16:13)
[2021-09-23] MEDS: Montelukast Sodium 10 mg Tablet PO SCH (08:38)
[2021-09-23] MEDS: Apixaban 5 MG TAB PO SCH ×2 (08:38→20:18)
[2021-09-23] MEDS: Gabapentin 300 MG CAP PO SCH ×3 (08:38→20:19)
[2021-09-23] MEDS: predniSONE 5 MG TAB PO SCH (08:38)
[2021-09-23] MEDS: Ferrous Sulfate 325 MG TAB PO SCH ×2 (08:39→20:18)
[2021-09-23] MEDS: Famotidine 20 MG TAB PO SCH (08:39)
[2021-09-23] MEDS: Rosuvastatin 10 MG TAB PO SCH (20:19)
[2021-09-23] MEDS ORDERED: Albuterol 200 PUFF (6.7GM INHALER) INH PRN (21:58)
[2021-09-24] MEDS: Mometasone/Formoterol 200/5 60 PUFF INH SCH ×2 (09:14→20:50)
[2021-09-24] MEDS: DULoxetine 30 MG CAP PO SCH (09:15)
[2021-09-24] MEDS: Magnesium Oxide 400 MG TAB PO SCH (09:15)
[2021-09-24] MEDS: Montelukast Sodium 10 mg Tablet PO SCH (09:16)
[2021-09-24] MEDS: Gabapentin 300 MG CAP PO SCH ×3 (09:16→20:49)
[2021-09-24] MEDS: Famotidine 20 MG TAB PO SCH (09:16)
[2021-09-24] MEDS: Apixaban 5 MG TAB PO SCH ×2 (09:16→20:49)
[2021-09-24] MEDS: Cholecalciferol (Vitamin D3) 400 UNITS TAB PO SCH (09:16)
[2021-09-24] MEDS: Dronedarone HCl 400 MG TAB PO SCH ×2 (09:16→16:30)
[2021-09-24] MEDS: Potassium Chloride 20 MEQ TAB PO SCH (09:16)
[2021-09-24] MEDS: Folic Acid 1 MG TAB PO SCH (09:17)
[2021-09-24] MEDS: predniSONE 5 MG TAB PO SCH (09:17)
[2021-09-24] MEDS: Ferrous Sulfate 325 MG TAB PO SCH ×2 (09:17→20:50)
[2021-09-24 12:06] LABS: Anion Gap 19 mmol/L (10-20); BUN (Urea Nitrogen) 10 mg/dL (9.8-20.1); Calc. Creatinine Clearance 37 mL/min (70-130); Calcium 9.2 mg/dL (7.8-10.44); Carbon Dioxide 25 mmol/L (23-31); Chloride 98 mmol/L (98-107); Glucose 98 mg/dL (80-115); Potassium 4.4 mmol/L (3.5-5.1); Sodium 138 mmol/L (136-145)
[2021-09-24 12:12] LABS: #Basophils 0.4 thou/uL (0.0-0.2); #Eosinphils 0.1 thou/uL (0.0-0.7); #Lymphocytes 1.7 thou/uL (1.20-3.40); #Monocytes 1.4 thou/uL (0.11-0.59); #Neutrophils 12.7 thou/uL (1.40-6.50); %Basophils 2.4 % (0.0-1.0); %Eosinophils 0.7 % (0.0-10.0); %Lymphocytes 10.2 % (21.0-51.0); %Monocytes 8.7 % (0.0-10.0); Hemoglobin 14.1 g/dL (12.0-16.0); Mean Corpuscular HGB CONC 31.9 g/dL (32.0-36.0); Mean Corpuscular Hemoglobin 30.6 pg (27.0-31.0); Mean Corpuscular Volume 96.1 fL (78.0-98.0); Platelet Count 593 thou/uL (130-400); RBC Distribution Width 12.3 % (11.5-14.5); Red Blood Cell (RBC) Count 4.61 mill/uL (4.20-5.40); White Blood Cell (WBC) Count 16.3 thou/uL (4.8-10.8)
[2021-09-24 13:21] LABS: Platelet Morphology Comment Appears Increased
[2021-09-24] MEDS: Rosuvastatin 10 MG TAB PO SCH (20:49)
[2021-09-25] MEDS: Mometasone/Formoterol 200/5 60 PUFF INH SCH ×2 (08:34→20:52)
[2021-09-25] MEDS: predniSONE 5 MG TAB PO SCH (08:35)
[2021-09-25] MEDS: Potassium Chloride 20 MEQ TAB PO SCH (08:35)
[2021-09-25] MEDS: Dronedarone HCl 400 MG TAB PO SCH ×2 (08:35→16:16)
[2021-09-25] MEDS: Ferrous Sulfate 325 MG TAB PO SCH ×2 (08:35→20:51)
[2021-09-25] MEDS: Apixaban 5 MG TAB PO SCH ×2 (08:35→20:51)
[2021-09-25] MEDS: Cholecalciferol (Vitamin D3) 400 UNITS TAB PO SCH (08:36)
[2021-09-25] MEDS: DULoxetine 30 MG CAP PO SCH (08:36)
[2021-09-25] MEDS: Magnesium Oxide 400 MG TAB PO SCH (08:36)
[2021-09-25] MEDS: Gabapentin 300 MG CAP PO SCH ×3 (08:36→20:51)
[2021-09-25] MEDS: Montelukast Sodium 10 mg Tablet PO SCH (08:37)
[2021-09-25] MEDS: Famotidine 20 MG TAB PO SCH (08:37)
[2021-09-25] MEDS: Folic Acid 1 MG TAB PO SCH (08:37)
[2021-09-25] MEDS: Rosuvastatin 10 MG TAB PO SCH (20:51)
[2021-09-26] MEDS: Potassium Chloride 20 MEQ TAB PO SCH (08:42)
[2021-09-26] MEDS: Dronedarone HCl 400 MG TAB PO SCH ×2 (08:42→17:09)
[2021-09-26] MEDS: Apixaban 5 MG TAB PO SCH ×2 (08:43→21:20)
[2021-09-26] MEDS: Cholecalciferol (Vitamin D3) 400 UNITS TAB PO SCH (08:43)
[2021-09-26] MEDS: Famotidine 20 MG TAB PO SCH (08:44)
[2021-09-26] MEDS: Ferrous Sulfate 325 MG TAB PO SCH ×2 (08:45→21:20)
[2021-09-26] MEDS: Gabapentin 300 MG CAP PO SCH ×3 (08:46→21:19)
[2021-09-26] MEDS: Folic Acid 1 MG TAB PO SCH (08:46)
[2021-09-26] MEDS: predniSONE 5 MG TAB PO SCH (08:47)
[2021-09-26] MEDS: Metoprolol Tartrate 25 MG TAB PO SCH ×2 (08:47→21:20)
[2021-09-26] MEDS: Montelukast Sodium 10 mg Tablet PO SCH (08:47)
[2021-09-26] MEDS: Magnesium Oxide 400 MG TAB PO SCH (08:47)
[2021-09-26] MEDS: Mometasone/Formoterol 200/5 60 PUFF INH SCH ×2 (08:48→21:19)
[2021-09-26] MEDS: DULoxetine 30 MG CAP PO SCH (08:49)
[2021-09-26] MEDS: Rosuvastatin 10 MG TAB PO SCH (21:20)
[2021-09-27] MEDS: Folic Acid 1 MG TAB PO SCH (08:50)
[2021-09-27] MEDS: predniSONE 5 MG TAB PO SCH (08:50)
[2021-09-27] MEDS: Ferrous Sulfate 325 MG TAB PO SCH ×2 (08:50→22:13)
[2021-09-27] MEDS: Cholecalciferol (Vitamin D3) 400 UNITS TAB PO SCH (08:50)
[2021-09-27] MEDS: Dronedarone HCl 400 MG TAB PO SCH ×2 (08:50→17:07)
[2021-09-27] MEDS: Metoprolol Tartrate 25 MG TAB PO SCH ×3 (08:50→22:12)
[2021-09-27] MEDS: DULoxetine 30 MG CAP PO SCH (08:51)
[2021-09-27] MEDS: Apixaban 5 MG TAB PO SCH ×2 (08:51→22:13)
[2021-09-27] MEDS: Gabapentin 300 MG CAP PO SCH ×3 (08:51→22:12)
[2021-09-27] MEDS: Famotidine 20 MG TAB PO SCH (08:52)
[2021-09-27] MEDS: Mometasone/Formoterol 200/5 60 PUFF INH SCH ×2 (08:52→22:23)
[2021-09-27] MEDS: Magnesium Oxide 400 MG TAB PO SCH (08:52)
[2021-09-27] MEDS: Montelukast Sodium 10 mg Tablet PO SCH (08:52)
[2021-09-27] MEDS: Potassium Chloride 20 MEQ TAB PO SCH (08:53)
[2021-09-27 13:33] LABS: #Basophils 0.2 thou/uL (0.0-0.2); #Eosinphils 0.1 thou/uL (0.0-0.7); #Lymphocytes 1.5 thou/uL (1.20-3.40); #Monocytes 1.5 thou/uL (0.11-0.59); #Neutrophils 8.5 thou/uL (1.40-6.50); %Basophils 1.4 % (0.0-1.0); %Eosinophils 1.2 % (0.0-10.0); %Monocytes 12.8 % (0.0-10.0); %Neutrophils 71.7 % (42.0-75.0); Hemoglobin 11.3 g/dL (12.0-16.0); Mean Corpuscular HGB CONC 31.4 g/dL (32.0-36.0); Mean Corpuscular Hemoglobin 30.5 pg (27.0-31.0); Mean Corpuscular Volume 97.1 fL (78.0-98.0); Mean Platelet Volume 5.5 fL (7.4-10.4); Platelet Count 505 thou/uL (130-400); RBC Distribution Width 12.6 % (11.5-14.5); Red Blood Cell (RBC) Count 3.72 mill/uL (4.20-5.40); White Blood Cell (WBC) Count 11.9 thou/uL (4.8-10.8)
[2021-09-27] MEDS: Rosuvastatin 10 MG TAB PO SCH (22:12)
[2021-09-27] MEDS: Acetaminophen 325 MG TAB PO PRN (22:21)
[2021-09-28] MEDS: Famotidine 20 MG TAB PO SCH (09:11)
[2021-09-28] MEDS: Potassium Chloride 20 MEQ TAB PO SCH (09:11)
[2021-09-28] MEDS: DULoxetine 30 MG CAP PO SCH (09:11)
[2021-09-28] MEDS: Apixaban 5 MG TAB PO SCH ×2 (09:11→20:52)
[2021-09-28] MEDS: Dronedarone HCl 400 MG TAB PO SCH ×2 (09:11→15:36)
[2021-09-28] MEDS: Folic Acid 1 MG TAB PO SCH (09:11)
[2021-09-28] MEDS: Gabapentin 300 MG CAP PO SCH ×3 (09:12→20:52)
[2021-09-28] MEDS: Magnesium Oxide 400 MG TAB PO SCH (09:12)
[2021-09-28] MEDS: Cholecalciferol (Vitamin D3) 400 UNITS TAB PO SCH (09:12)
[2021-09-28] MEDS: Ferrous Sulfate 325 MG TAB PO SCH ×2 (09:12→20:52)
[2021-09-28] MEDS: predniSONE 5 MG TAB PO SCH (09:12)
[2021-09-28] MEDS: Montelukast Sodium 10 mg Tablet PO SCH (09:12)
[2021-09-28] MEDS: Metoprolol Tartrate 25 MG TAB PO SCH ×2 (09:12→20:52)
[2021-09-28] MEDS: Mometasone/Formoterol 200/5 60 PUFF INH SCH ×2 (09:14→20:54)
[2021-09-28] MEDS: Rosuvastatin 10 MG TAB PO SCH (20:52)
[2021-09-28] MEDS: Acetaminophen 325 MG TAB PO PRN (20:57)
[2021-09-29] MEDS: Mometasone/Formoterol 200/5 60 PUFF INH SCH ×2 (08:45→20:18)
[2021-09-29] MEDS: predniSONE 5 MG TAB PO SCH (08:47)
[2021-09-29] MEDS: Potassium Chloride 20 MEQ TAB PO SCH (08:47)
[2021-09-29] MEDS: Montelukast Sodium 10 mg Tablet PO SCH (08:47)
[2021-09-29] MEDS: Famotidine 20 MG TAB PO SCH (08:47)
[2021-09-29] MEDS: DULoxetine 30 MG CAP PO SCH (08:47)
[2021-09-29] MEDS: Magnesium Oxide 400 MG TAB PO SCH (08:47)
[2021-09-29] MEDS: Apixaban 5 MG TAB PO SCH ×2 (08:47→20:19)
[2021-09-29] MEDS: Dronedarone HCl 400 MG TAB PO SCH ×2 (08:47→16:33)
[2021-09-29] MEDS: Folic Acid 1 MG TAB PO SCH (08:47)
[2021-09-29] MEDS: Gabapentin 300 MG CAP PO SCH ×4 (08:48→20:22)
[2021-09-29] MEDS: Ferrous Sulfate 325 MG TAB PO SCH ×2 (08:48→20:19)
[2021-09-29] MEDS: Cholecalciferol (Vitamin D3) 400 UNITS TAB PO SCH (08:48)
[2021-09-29] MEDS: Metoprolol Tartrate 25 MG TAB PO SCH ×2 (08:48→20:19)
[2021-09-29] MEDS: Rosuvastatin 10 MG TAB PO SCH (20:18)
[2021-09-30] MEDS: Montelukast Sodium 10 mg Tablet PO SCH (08:02)
[2021-09-30] MEDS: Gabapentin 300 MG CAP PO SCH ×3 (08:02→20:06)
[2021-09-30] MEDS: Famotidine 20 MG TAB PO SCH (08:02)
[2021-09-30] MEDS: Potassium Chloride 20 MEQ TAB PO SCH (08:02)
[2021-09-30] MEDS: Apixaban 5 MG TAB PO SCH ×2 (08:02→20:07)
[2021-09-30] MEDS: Magnesium Oxide 400 MG TAB PO SCH (08:02)
[2021-09-30] MEDS: Folic Acid 1 MG TAB PO SCH (08:03)
[2021-09-30] MEDS: predniSONE 5 MG TAB PO SCH (08:03)
[2021-09-30] MEDS: Ferrous Sulfate 325 MG TAB PO SCH ×2 (08:03→20:06)
[2021-09-30] MEDS: Metoprolol Tartrate 25 MG TAB PO SCH ×2 (08:03→20:07)
[2021-09-30] MEDS: Saccharomyces boulardii 250 MG CAP PO SCH (08:03)
[2021-09-30] MEDS: DULoxetine 30 MG CAP PO SCH (08:03)
[2021-09-30] MEDS: Dronedarone HCl 400 MG TAB PO SCH ×2 (08:03→16:51)
[2021-09-30] MEDS: Cholecalciferol (Vitamin D3) 400 UNITS TAB PO SCH (08:03)
[2021-09-30] MEDS: Mometasone/Formoterol 200/5 60 PUFF INH SCH ×2 (08:05→20:06)
[2021-09-30] MEDS: Rosuvastatin 10 MG TAB PO SCH (20:06)
[2021-10-01] MEDS: Potassium Chloride 20 MEQ TAB PO SCH (08:29)
[2021-10-01] MEDS: Mometasone/Formoterol 200/5 60 PUFF INH SCH ×2 (08:29→20:38)
[2021-10-01] MEDS: Folic Acid 1 MG TAB PO SCH (08:29)
[2021-10-01] MEDS: Magnesium Oxide 400 MG TAB PO SCH (08:29)
[2021-10-01] MEDS: Gabapentin 300 MG CAP PO SCH ×3 (08:29→20:37)
[2021-10-01] MEDS: Cholecalciferol (Vitamin D3) 400 UNITS TAB PO SCH (08:30)
[2021-10-01] MEDS: Saccharomyces boulardii 250 MG CAP PO SCH (08:30)
[2021-10-01] MEDS: Famotidine 20 MG TAB PO SCH (08:30)
[2021-10-01] MEDS: Metoprolol Tartrate 25 MG TAB PO SCH ×2 (08:30→20:38)
[2021-10-01] MEDS: Ferrous Sulfate 325 MG TAB PO SCH ×2 (08:30→20:37)
[2021-10-01] MEDS: Montelukast Sodium 10 mg Tablet PO SCH (08:30)
[2021-10-01] MEDS: Apixaban 5 MG TAB PO SCH ×2 (08:30→20:37)
[2021-10-01] MEDS: DULoxetine 30 MG CAP PO SCH (08:30)
[2021-10-01] MEDS: predniSONE 5 MG TAB PO SCH (08:30)
[2021-10-01] MEDS: Dronedarone HCl 400 MG TAB PO SCH ×2 (08:30→16:03)
[2021-10-01] MEDS: Rosuvastatin 10 MG TAB PO SCH (20:36)
[2021-10-01] MEDS: Acetaminophen 325 MG TAB PO PRN (20:40)
[2021-10-02] MEDS: Mometasone/Formoterol 200/5 60 PUFF INH SCH ×2 (08:40→21:50)
[2021-10-02] MEDS: Cholecalciferol (Vitamin D3) 400 UNITS TAB PO SCH (08:42)
[2021-10-02] MEDS: Gabapentin 300 MG CAP PO SCH ×3 (08:42→21:50)
[2021-10-02] MEDS: Dronedarone HCl 400 MG TAB PO SCH ×2 (08:42→16:57)
[2021-10-02] MEDS: Folic Acid 1 MG TAB PO SCH (08:42)
[2021-10-02] MEDS: Ferrous Sulfate 325 MG TAB PO SCH ×2 (08:42→21:50)
[2021-10-02] MEDS: Apixaban 5 MG TAB PO SCH ×2 (08:42→21:50)
[2021-10-02] MEDS: DULoxetine 30 MG CAP PO SCH (08:42)
[2021-10-02] MEDS: Magnesium Oxide 400 MG TAB PO SCH (08:42)
[2021-10-02] MEDS: Potassium Chloride 20 MEQ TAB PO SCH (08:42)
[2021-10-02] MEDS: Saccharomyces boulardii 250 MG CAP PO SCH (08:42)
[2021-10-02] MEDS: Metoprolol Tartrate 25 MG TAB PO SCH ×2 (08:43→21:50)
[2021-10-02] MEDS: Famotidine 20 MG TAB PO SCH (08:44)
[2021-10-02] MEDS: predniSONE 5 MG TAB PO SCH (08:45)
[2021-10-02] MEDS: Montelukast Sodium 10 mg Tablet PO SCH (08:48)
[2021-10-02] MEDS: Rosuvastatin 10 MG TAB PO SCH (21:50)
[2021-10-03] MEDS: Montelukast Sodium 10 mg Tablet PO SCH (08:09)
[2021-10-03] MEDS: Magnesium Oxide 400 MG TAB PO SCH (08:09)
[2021-10-03] MEDS: Potassium Chloride 20 MEQ TAB PO SCH (08:09)
[2021-10-03] MEDS: Mometasone/Formoterol 200/5 60 PUFF INH SCH ×2 (08:09→20:54)
[2021-10-03] MEDS: Apixaban 5 MG TAB PO SCH ×2 (08:10→20:54)
[2021-10-03] MEDS: Saccharomyces boulardii 250 MG CAP PO SCH (08:10)
[2021-10-03] MEDS: predniSONE 5 MG TAB PO SCH (08:10)
[2021-10-03] MEDS: Ferrous Sulfate 325 MG TAB PO SCH ×2 (08:10→20:53)
[2021-10-03] MEDS: Metoprolol Tartrate 25 MG TAB PO SCH ×2 (08:10→20:53)
[2021-10-03] MEDS: Gabapentin 300 MG CAP PO SCH ×3 (08:10→20:53)
[2021-10-03] MEDS: Folic Acid 1 MG TAB PO SCH (08:10)
[2021-10-03] MEDS: Dronedarone HCl 400 MG TAB PO SCH ×2 (08:10→16:58)
[2021-10-03] MEDS: Cholecalciferol (Vitamin D3) 400 UNITS TAB PO SCH (08:11)
[2021-10-03] MEDS: DULoxetine 30 MG CAP PO SCH (08:11)
[2021-10-03] MEDS: Famotidine 20 MG TAB PO SCH (08:11)
[2021-10-03] MEDS: Rosuvastatin 10 MG TAB PO SCH (20:53)
[2021-10-03] MEDS: Acetaminophen 325 MG TAB PO PRN (20:53)
[2021-10-04 05:22] LABS: Hemoglobin 11.3 g/dL (12.0-16.0); Platelet Count 391 thou/uL (130-400)
[2021-10-04] MEDS: Mometasone/Formoterol 200/5 60 PUFF INH SCH ×2 (09:44→21:01)
[2021-10-04] MEDS: Folic Acid 1 MG TAB PO SCH (09:45)
[2021-10-04] MEDS: Saccharomyces boulardii 250 MG CAP PO SCH (09:45)
[2021-10-04] MEDS: DULoxetine 30 MG CAP PO SCH (09:45)
[2021-10-04] MEDS: Cholecalciferol (Vitamin D3) 400 UNITS TAB PO SCH (09:45)
[2021-10-04] MEDS: Ferrous Sulfate 325 MG TAB PO SCH ×2 (09:45→20:52)
[2021-10-04] MEDS: Famotidine 20 MG TAB PO SCH (09:45)
[2021-10-04] MEDS: Metoprolol Tartrate 25 MG TAB PO SCH ×2 (09:46→20:53)
[2021-10-04] MEDS: Apixaban 5 MG TAB PO SCH ×2 (09:46→20:52)
[2021-10-04] MEDS: Magnesium Oxide 400 MG TAB PO SCH (09:46)
[2021-10-04] MEDS: Potassium Chloride 20 MEQ TAB PO SCH (09:46)
[2021-10-04] MEDS: Montelukast Sodium 10 mg Tablet PO SCH (09:46)
[2021-10-04] MEDS: Dronedarone HCl 400 MG TAB PO SCH ×2 (09:46→16:18)
[2021-10-04] MEDS: predniSONE 5 MG TAB PO SCH (09:46)
[2021-10-04] MEDS: Gabapentin 300 MG CAP PO SCH ×3 (09:46→20:53)
[2021-10-04 13:33] VITALS: BMI 24.5
[2021-10-04] MEDS: Rosuvastatin 10 MG TAB PO SCH (20:52)
[2021-10-05] MEDS: Montelukast Sodium 10 mg Tablet PO SCH (09:20)
[2021-10-05] MEDS: DULoxetine 30 MG CAP PO SCH (09:20)
[2021-10-05] MEDS: Mometasone/Formoterol 200/5 60 PUFF INH SCH ×2 (09:20→20:49)
[2021-10-05] MEDS: Gabapentin 300 MG CAP PO SCH ×3 (09:21→20:48)
[2021-10-05] MEDS: Ferrous Sulfate 325 MG TAB PO SCH ×2 (09:21→20:48)
[2021-10-05] MEDS: Metoprolol Tartrate 25 MG TAB PO SCH ×2 (09:21→20:48)
[2021-10-05] MEDS: Dronedarone HCl 400 MG TAB PO SCH ×2 (09:21→16:27)
[2021-10-05] MEDS: Folic Acid 1 MG TAB PO SCH (09:22)
[2021-10-05] MEDS: Cholecalciferol (Vitamin D3) 400 UNITS TAB PO SCH (09:22)
[2021-10-05] MEDS: Saccharomyces boulardii 250 MG CAP PO SCH (09:22)
[2021-10-05] MEDS: Potassium Chloride 20 MEQ TAB PO SCH (09:22)
[2021-10-05] MEDS: Famotidine 20 MG TAB PO SCH (09:22)
[2021-10-05] MEDS: Apixaban 5 MG TAB PO SCH ×2 (09:23→20:48)
[2021-10-05] MEDS: predniSONE 5 MG TAB PO SCH (09:23)
[2021-10-05] MEDS: Magnesium Oxide 400 MG TAB PO SCH (09:23)
[2021-10-05] MEDS: Rosuvastatin 10 MG TAB PO SCH (20:48)
[2021-10-06] MEDS: Dronedarone HCl 400 MG TAB PO SCH ×2 (08:28→17:28)
[2021-10-06] MEDS: Magnesium Oxide 400 MG TAB PO SCH (08:28)
[2021-10-06] MEDS: Potassium Chloride 20 MEQ TAB PO SCH (08:28)
[2021-10-06] MEDS: Folic Acid 1 MG TAB PO SCH (08:28)
[2021-10-06] MEDS: Metoprolol Tartrate 25 MG TAB PO SCH ×2 (08:28→20:14)
[2021-10-06] MEDS: Saccharomyces boulardii 250 MG CAP PO SCH (08:28)
[2021-10-06] MEDS: DULoxetine 30 MG CAP PO SCH (08:28)
[2021-10-06] MEDS: Famotidine 20 MG TAB PO SCH (08:28)
[2021-10-06] MEDS: Apixaban 5 MG TAB PO SCH ×2 (08:28→20:15)
[2021-10-06] MEDS: predniSONE 5 MG TAB PO SCH (08:28)
[2021-10-06] MEDS: Gabapentin 300 MG CAP PO SCH ×3 (08:28→20:14)
[2021-10-06] MEDS: Cholecalciferol (Vitamin D3) 400 UNITS TAB PO SCH (08:28)
[2021-10-06] MEDS: Montelukast Sodium 10 mg Tablet PO SCH (08:30)
[2021-10-06] MEDS: Ferrous Sulfate 325 MG TAB PO SCH ×2 (08:30→20:14)
[2021-10-06] MEDS: Mometasone/Formoterol 200/5 60 PUFF INH SCH ×2 (08:30→20:15)
[2021-10-06] MEDS: Rosuvastatin 10 MG TAB PO SCH (20:14)
[2021-10-07] MEDS: Famotidine 20 MG TAB PO SCH (08:25)
[2021-10-07] MEDS: Ferrous Sulfate 325 MG TAB PO SCH ×2 (08:25→20:37)
[2021-10-07] MEDS: Metoprolol Tartrate 25 MG TAB PO SCH ×2 (08:25→20:37)
[2021-10-07] MEDS: Apixaban 5 MG TAB PO SCH ×2 (08:25→20:37)
[2021-10-07] MEDS: predniSONE 5 MG TAB PO SCH (08:25)
[2021-10-07] MEDS: Dronedarone HCl 400 MG TAB PO SCH ×2 (08:25→17:05)
[2021-10-07] MEDS: Folic Acid 1 MG TAB PO SCH (08:25)
[2021-10-07] MEDS: Magnesium Oxide 400 MG TAB PO SCH (08:25)
[2021-10-07] MEDS: DULoxetine 30 MG CAP PO SCH (08:25)
[2021-10-07] MEDS: Mometasone/Formoterol 200/5 60 PUFF INH SCH ×2 (08:25→20:37)
[2021-10-07] MEDS: Saccharomyces boulardii 250 MG CAP PO SCH (08:25)
[2021-10-07] MEDS: Potassium Chloride 20 MEQ TAB PO SCH (08:26)
[2021-10-07] MEDS: Gabapentin 300 MG CAP PO SCH ×3 (08:26→20:36)
[2021-10-07] MEDS: Cholecalciferol (Vitamin D3) 400 UNITS TAB PO SCH (08:26)
[2021-10-07] MEDS: Montelukast Sodium 10 mg Tablet PO SCH (08:27)
[2021-10-07] MEDS: Rosuvastatin 10 MG TAB PO SCH (20:36)
[2021-10-08 07:42] VITALS: BP 117/58; TEMP 98.3
[2021-10-08] MEDS: Apixaban 5 MG TAB PO SCH (08:07)
[2021-10-08] MEDS: Dronedarone HCl 400 MG TAB PO SCH ×2 (08:07→17:42)
[2021-10-08] MEDS: Potassium Chloride 20 MEQ TAB PO SCH (08:07)
[2021-10-08] MEDS: Magnesium Oxide 400 MG TAB PO SCH (08:08)
[2021-10-08] MEDS: Famotidine 20 MG TAB PO SCH (08:08)
[2021-10-08] MEDS: Metoprolol Tartrate 25 MG TAB PO SCH (08:08)
[2021-10-08] MEDS: DULoxetine 30 MG CAP PO SCH (08:08)
[2021-10-08] MEDS: Folic Acid 1 MG TAB PO SCH (08:08)
[2021-10-08] MEDS: Montelukast Sodium 10 mg Tablet PO SCH (08:08)
[2021-10-08] MEDS: predniSONE 5 MG TAB PO SCH (08:08)
[2021-10-08] MEDS: Saccharomyces boulardii 250 MG CAP PO SCH (08:08)
[2021-10-08] MEDS: Cholecalciferol (Vitamin D3) 400 UNITS TAB PO SCH (08:08)
[2021-10-08] MEDS: Ferrous Sulfate 325 MG TAB PO SCH (08:08)
[2021-10-08] MEDS: Gabapentin 300 MG CAP PO SCH ×2 (08:09→14:41)
[2021-10-08] MEDS: Mometasone/Formoterol 200/5 60 PUFF INH SCH (08:14)
== END 2021-10-08 18:00 | disposition home or self-care (01) | DRG 947 ==
LOC: MADMS 18:33
PROVIDERS: ADMIT Family Medicine; ATTEND Family Medicine
DX: R53.81 Other malaise (principal); U07.1 COVID-19; A04.72 Enterocolitis due to Clostridium difficile, not specified as recurrent; K55.1 Chronic vascular disorders of intestine; I50.32 Chronic diastolic (congestive) heart failure; E78.5 Hyperlipidemia, unspecified; I11.0 Hypertensive heart disease with heart failure; G89.29 Other chronic pain; M54.9 Dorsalgia, unspecified; I25.10 Atherosclerotic heart disease of native coronary artery without angina pectoris; I48.91 Unspecified atrial fibrillation; D75.839 Thrombocytosis, unspecified; F17.210 Nicotine dependence, cigarettes, uncomplicated; J44.9 Chronic obstructive pulmonary disease, unspecified; Z96.651 Presence of right artificial knee joint; K27.9 Peptic ulcer, site unspecified, unspecified as acute or chronic, without hemorrhage or perforation; X58.XXXD Exposure to other specified factors, subsequent encounter; Z96.611 Presence of right artificial shoulder joint; Z87.19 Personal history of other diseases of the digestive system; S82.891D Other fracture of right lower leg, subsequent encounter for closed fracture with routine healing; Z88.1 Allergy status to other antibiotic agents; Z79.01 Long term (current) use of anticoagulants; Z79.899 Other long term (current) drug therapy; Z90.49 Acquired absence of other specified parts of digestive tract
CPT/HCPCS: 36415; 80048; 82565; 85014; 85018; 85025; 85049; 94664; J7512

== ENCOUNTER 2022-05-30 10:36 | Emergency (ER) | payer OTHER ==
[2022-05-30] MEDS ORDERED: Sodium Chloride 0.9% 500 ML ONE (11:18)
[2022-05-30 11:30] LABS: Band 2 % (5-11); Eosinophils 2 % (0-10); Hemoglobin 11.7 g/dL (12.0-16.0); Lymphocytes 14 % (21-51); MDiff Complete? YES; Mean Corpuscular HGB CONC 33.3 g/dL (32.0-36.0); Mean Corpuscular Volume 99.2 fL (78.0-98.0); Mean Platelet Volume 7.3 fL (7.4-10.4); Monocytes 4 % (0-10); Neutrophil 78 % (42-75); Platelet Count 230 thou/uL (130-400); RBC Distribution Width 11.2 % (11.5-14.5); Red Blood Cell (RBC) Count 3.55 mill/uL (4.20-5.40); White Blood Cell (WBC) Count 21.7 thou/uL (4.8-10.8)
[2022-05-30 11:32] LABS: ALT (SGPT) 16 U/L (8-55); AST (SGOT) 15 U/L (5-34); Albumin 3.6 g/dL (3.4-4.8); Alkaline Phosphatase 55 U/L (40-110); Anion Gap 11 mmol/L (10-20); BUN (Urea Nitrogen) 14 mg/dL (9.8-20.1); Bilirubin, Total 0.5 mg/dL (0.2-1.2); Calc. Creatinine Clearance 0 mL/min (70-130); Calcium 8.2 mg/dL (7.8-10.44); Carbon Dioxide 25 mmol/L (23-31); Chloride 105 mmol/L (98-107); Estimated GFR 47; Globulin 2.2 g/dL (2.4-3.5); Glucose 116 mg/dL (83-110); Lipase 9 U/L (8-78); Potassium 3.9 mmol/L (3.5-5.1); Protein, Total 5.8 g/dL (5.8-8.1); Sodium 137 mmol/L (136-145)
[2022-05-30 12:56] LABS: SARS-CoV-2 NAA Rapid Test Not Detected (NotDetected)
[2022-05-30 13:02] LABS: Bilirubin Negative (Negative); Blood, Urine Trace (Negative); Clarity Clear (Clear); Glucose, Urine (Dipstick) Negative (Negative); Ketone, Urine Negative (Negative); Leukocyte Negative (Negative); Nitrite Negative (Negative); Protein, Urine (Dipstick) 30 mg/dL (Neg-Trace); Specific Gravity, Urine 1.015 (1.005-1.030); Urobilinogen 0.2 mg/dL (Less than 2)
[2022-05-30 13:12] LABS: Bacteria/HPF Rare-Few HPF (None Seen); Squamous Epithelial 0-3 HPF (0-3); WBC/HPF 0-3 HPF (0-3)
== END 2022-05-30 14:13 | disposition home or self-care (01) ==
LOC: MADERS 10:36
DX: R53.1 Weakness (principal); D72.829 Elevated white blood cell count, unspecified; E78.00 Pure hypercholesterolemia, unspecified; I10 Essential (primary) hypertension; J44.9 Chronic obstructive pulmonary disease, unspecified; D64.9 Anemia, unspecified; I25.10 Atherosclerotic heart disease of native coronary artery without angina pectoris; I48.91 Unspecified atrial fibrillation; F17.210 Nicotine dependence, cigarettes, uncomplicated; Z20.822 Contact with and (suspected) exposure to COVID-19
CPT/HCPCS: 71045; 83605; 83690; 83735; 83880; 84484; 93005; U0002; 36415; 80053; 81003; 81015; 84443; 85025; J7030

== ENCOUNTER 2022-06-03 08:36 | Emergency (ER) | payer OTHER ==
[2022-06-03 10:04] LABS: #Basophils 0.1 thou/uL (0.0-0.2); #Eosinphils 0.2 thou/uL (0.0-0.7); #Lymphocytes 1.8 thou/uL (1.20-3.40); #Monocytes 1.3 thou/uL (0.11-0.59); #Neutrophils 11.8 thou/uL (1.40-6.50); %Basophils 0.8 % (0.0-1.0); %Eosinophils 1.2 % (0.0-10.0); %Monocytes 8.3 % (0.0-10.0); %Neutrophils 77.6 % (42.0-75.0); Hemoglobin 12.5 g/dL (12.0-16.0); Mean Corpuscular HGB CONC 31.8 g/dL (32.0-36.0); Mean Corpuscular Hemoglobin 31.7 pg (27.0-31.0); Mean Corpuscular Volume 99.6 fL (78.0-98.0); Mean Platelet Volume 7.5 fL (7.4-10.4); Platelet Count 256 thou/uL (130-400); RBC Distribution Width 11.5 % (11.5-14.5); Red Blood Cell (RBC) Count 3.93 mill/uL (4.20-5.40); White Blood Cell (WBC) Count 15.2 thou/uL (4.8-10.8)
[2022-06-03 10:20] LABS: ALT (SGPT) 10 U/L (8-55); AST (SGOT) 14 U/L (5-34); Albumin 3.8 g/dL (3.4-4.8); Alkaline Phosphatase 53 U/L (40-110); Anion Gap 14 mmol/L (10-20); BUN (Urea Nitrogen) 11 mg/dL (9.8-20.1); Bilirubin, Total 0.6 mg/dL (0.2-1.2); Calc. Creatinine Clearance 0 mL/min (70-130); Calcium 8.8 mg/dL (7.8-10.44); Carbon Dioxide 22 mmol/L (23-31); Chloride 106 mmol/L (98-107); Estimated GFR 39; Globulin 2.5 g/dL (2.4-3.5); Glucose 82 mg/dL (83-110); Protein, Total 6.3 g/dL (5.8-8.1); Sodium 138 mmol/L (136-145)
[2022-06-03] MEDS ORDERED: Morphine 2 MG/ML VIAL ONE (12:20)
== END 2022-06-03 13:40 | disposition home or self-care (01) ==
LOC: MADERS 08:36
DX: S22.41XA Multiple fractures of ribs, right side, initial encounter for closed fracture (principal); S09.90XA Unspecified injury of head, initial encounter; E78.00 Pure hypercholesterolemia, unspecified; I10 Essential (primary) hypertension; I25.10 Atherosclerotic heart disease of native coronary artery without angina pectoris; J44.9 Chronic obstructive pulmonary disease, unspecified; I48.91 Unspecified atrial fibrillation; F17.210 Nicotine dependence, cigarettes, uncomplicated; D64.9 Anemia, unspecified; R73.03 Prediabetes; Z79.84 Long term (current) use of oral hypoglycemic drugs; Z79.899 Other long term (current) drug therapy; Z79.01 Long term (current) use of anticoagulants; W01.198A Fall on same level from slipping, tripping and stumbling with subsequent striking against other object, initial encounter
CPT/HCPCS: 70450; 71250; 73562; 74177; 80053; 85025; 99284; J2270; 36415

== ENCOUNTER 2022-06-05 21:41 | Emergency (ER) | payer OTHER ==
[2022-06-05] MEDS ORDERED: Ondansetron ODT 4 MG TAB ONE (22:26)
[2022-06-05] MEDS ORDERED: HYDROcodone/Acetaminophen 10/325 mg Tablet ONE (22:26)
== END 2022-06-06 00:52 | disposition home or self-care (01) ==
LOC: MADERS 21:41
DX: S22.32XA Fracture of one rib, left side, initial encounter for closed fracture (principal); S22.089A Unspecified fracture of T11-T12 vertebra, initial encounter for closed fracture; I10 Essential (primary) hypertension; E78.00 Pure hypercholesterolemia, unspecified; E78.5 Hyperlipidemia, unspecified; J44.9 Chronic obstructive pulmonary disease, unspecified; I48.91 Unspecified atrial fibrillation; F17.210 Nicotine dependence, cigarettes, uncomplicated; Z79.84 Long term (current) use of oral hypoglycemic drugs; Z79.01 Long term (current) use of anticoagulants; Z79.52 Long term (current) use of systemic steroids; Z79.899 Other long term (current) drug therapy; W01.0XXA Fall on same level from slipping, tripping and stumbling without subsequent striking against object, initial encounter
CPT/HCPCS: 71045; Q0162

== ENCOUNTER 2022-06-26 07:04 | Emergency (ER) | payer OTHER ==
[2022-06-26] MEDS ORDERED: traMADol HCl 50 MG TAB ONE (08:14)
== END 2022-06-26 10:49 | disposition home or self-care (01) ==
LOC: MADERS 07:04
DX: S12.600A Unspecified displaced fracture of seventh cervical vertebra, initial encounter for closed fracture (principal); S20.212A Contusion of left front wall of thorax, initial encounter; S80.02XA Contusion of left knee, initial encounter; I25.10 Atherosclerotic heart disease of native coronary artery without angina pectoris; I48.91 Unspecified atrial fibrillation; E11.9 Type 2 diabetes mellitus without complications; E78.5 Hyperlipidemia, unspecified; I10 Essential (primary) hypertension; J44.9 Chronic obstructive pulmonary disease, unspecified; Z79.84 Long term (current) use of oral hypoglycemic drugs; Z79.899 Other long term (current) drug therapy; Z79.01 Long term (current) use of anticoagulants; W19.XXXA Unspecified fall, initial encounter
CPT/HCPCS: 70450; 72125

== ENCOUNTER 2022-07-18 17:50 | Emergency (ER) | payer OTHER | END 2022-07-18 19:20 | disposition home or self-care (01) | LOC: MADERS 17:50 | DX: R51.9 Headache, unspecified (principal); W01.10XA Fall on same level from slipping, tripping and stumbling with subsequent striking against unspecified object, initial encounter; E11.9 Type 2 diabetes mellitus without complications; E78.00 Pure hypercholesterolemia, unspecified; I10 Essential (primary) hypertension; J44.9 Chronic obstructive pulmonary disease, unspecified; F17.210 Nicotine dependence, cigarettes, uncomplicated | CPT/HCPCS: 70450; 72125 ==

== ENCOUNTER 2022-08-19 06:37 | Emergency (ER) | payer OTHER ==
[2022-08-19] MEDS ORDERED: Acetaminophen 325 MG TAB ONE (07:10)
[2022-08-19] MEDS ORDERED: traMADol HCl 50 MG TAB ONE (08:56)
[2022-08-19 09:16] LABS: #Basophils 0.1 thou/uL (0.0-0.2); #Eosinphils 0.2 thou/uL (0.0-0.7); #Lymphocytes 1.7 thou/uL (1.20-3.40); #Monocytes 0.8 thou/uL (0.11-0.59); #Neutrophils 4.8 thou/uL (1.40-6.50); %Basophils 1.7 % (0.0-1.0); %Eosinophils 2.6 % (0.0-10.0); %Lymphocytes 21.9 % (21.0-51.0); %Neutrophils 63.9 % (42.0-75.0); Hemoglobin 12.6 g/dL (12.0-16.0); Mean Corpuscular HGB CONC 33.5 g/dL (32.0-36.0); Mean Corpuscular Hemoglobin 32.8 pg (27.0-31.0); Mean Corpuscular Volume 97.9 fl (78.0-98.0); Mean Platelet Volume 6.9 fL (7.4-10.4); Platelet Count 177 10x3/uL (130-400); RBC Distribution Width 12.1 % (11.5-14.5); Red Blood Cell (RBC) Count 3.86 mill/uL (4.20-5.40); White Blood Cell (WBC) Count 7.6 10x3/uL (4.8-10.8)
[2022-08-19 09:30] LABS: AST (SGOT) 21 U/L (5-34); Albumin 3.2 g/dL (3.4-4.8); Alkaline Phosphatase 62 U/L (40-110); Anion Gap 13 mmol/L (10-20); BUN (Urea Nitrogen) 8 mg/dL (9.8-20.1); Bilirubin, Total 0.4 mg/dL (0.2-1.2); Calc. Creatinine Clearance 0 mL/min (70-130); Calcium 8.1 mg/dL (7.8-10.44); Carbon Dioxide 24 mmol/L (23-31); Chloride 103 mmol/L (98-107); Estimated GFR 73; Glucose 85 mg/dL (83-110); Potassium 4.7 mmol/L (3.5-5.1); Protein, Total 5.2 g/dL (5.8-8.1); Sodium 135 mmol/L (136-145)
[2022-08-19 09:45] LABS: ALT (SGPT) 12 U/L (8-55)
== END 2022-08-19 15:17 | disposition short-term general hospital (02) ==
LOC: MADERS 06:37
DX: S22.018A Other fracture of first thoracic vertebra, initial encounter for closed fracture (principal); S42.402A Unspecified fracture of lower end of left humerus, initial encounter for closed fracture; F17.210 Nicotine dependence, cigarettes, uncomplicated; I25.10 Atherosclerotic heart disease of native coronary artery without angina pectoris; E11.9 Type 2 diabetes mellitus without complications; I10 Essential (primary) hypertension; E78.00 Pure hypercholesterolemia, unspecified; W19.XXXA Unspecified fall, initial encounter; Z79.84 Long term (current) use of oral hypoglycemic drugs; Z79.01 Long term (current) use of anticoagulants; Z79.899 Other long term (current) drug therapy
CPT/HCPCS: 29125; 36415; 70450; 71045; 72125; 80053; 85025; G0390; J7620

== ENCOUNTER 2022-08-26 12:08 | Inpatient (IN) | payer OTHER ==
[2022-08-26 15:35] VITALS: BMI 22.8
[2022-08-26] MEDS ORDERED: Albuterol 200 PUFF (6.7GM INHALER) INH PRN (18:49)
[2022-08-26] MEDS: Apixaban 5 MG TAB PO SCH (20:48)
[2022-08-26] MEDS: Acetaminophen 325 MG TAB PO PRN (20:49)
[2022-08-26] MEDS: Metoprolol Tartrate 25 MG TAB PO SCH (20:49)
[2022-08-26] MEDS ORDERED: Gabapentin 300 MG CAP PO SCH (21:00)
[2022-08-27] MEDS: Acetaminophen 325 MG TAB PO PRN ×2 (05:39→20:15)
[2022-08-27 05:47] LABS: ALT (SGPT) 19 U/L (8-55); AST (SGOT) 27 U/L (5-34); Albumin 3.1 g/dL (3.4-4.8); Alkaline Phosphatase 57 U/L (40-110); Anion Gap 18 mmol/L (10-20); BUN (Urea Nitrogen) 17 mg/dL (9.8-20.1); Bilirubin, Total 0.7 mg/dL (0.2-1.2); Calc. Creatinine Clearance 56 mL/min (70-130); Calcium 9.5 mg/dL (7.8-10.44); Carbon Dioxide 28 mmol/L (23-31); Chloride 102 mmol/L (98-107); Estimated GFR 82; Globulin 3.3 g/dL (2.4-3.5); Glucose 92 mg/dL (83-110); Potassium 3.5 mmol/L (3.5-5.1); Protein, Total 6.4 g/dL (5.8-8.1); Sodium 144 mmol/L (136-145)
[2022-08-27 05:56] LABS: Band 1 % (5-11); Eosinophils 6 % (0-10); Lymphocytes 19 % (21-51); MDiff Complete? YES; Mean Corpuscular HGB CONC 33.1 g/dL (32.0-36.0); Mean Corpuscular Hemoglobin 31.9 pg (27.0-31.0); Mean Corpuscular Volume 96.5 fl (78.0-98.0); Monocytes 17 % (0-10); Neutrophil 57 % (42-75); Platelet Count 395 10x3/uL (130-400); RBC Distribution Width 12.2 % (11.5-14.5); RBC Morphology Normal; Red Blood Cell (RBC) Count 3.45 mill/uL (4.20-5.40); White Blood Cell (WBC) Count 8.5 10x3/uL (4.8-10.8)
[2022-08-27] MEDS ORDERED: FLU VACC QS2022-23(65YR UP)/PF 240 MCG/0.7 ML SYRINGE IM ONE (09:00)
[2022-08-27] MEDS: Mometasone/Formoterol 200/5 60 PUFF INH SCH ×2 (09:18→20:00)
[2022-08-27] MEDS: Gabapentin 300 MG CAP PO SCH ×2 (09:19→20:12)
[2022-08-27] MEDS: Metoprolol Tartrate 25 MG TAB PO SCH ×2 (09:19→20:20)
[2022-08-27] MEDS: Folic Acid 1 MG TAB PO SCH (09:19)
[2022-08-27] MEDS: DULoxetine 30 MG CAP PO SCH (09:19)
[2022-08-27] MEDS: Nicotine 14 MG PATCH TOP SCH (09:19)
[2022-08-27] MEDS: traMADol HCl 50 MG TAB PO PRN ×2 (09:20→15:48)
[2022-08-27] MEDS: Doxepin HCl 25 MG CAP PO SCH (09:20)
[2022-08-27] MEDS: Potassium Chloride 20 MEQ TAB PO SCH (09:20)
[2022-08-27] MEDS: Apixaban 5 MG TAB PO SCH ×2 (09:20→20:13)
[2022-08-27] MEDS: Furosemide 40 MG TAB PO SCH (09:20)
[2022-08-27 11:54] LABS: Hemoglobin A1c 4.7 % (4.0-6.0)
[2022-08-28] MEDS: traMADol HCl 50 MG TAB PO PRN ×2 (02:22→11:35)
[2022-08-28 06:33] LABS: SARS-CoV-2 NAA Rapid Test Not Detected (NotDetected)
[2022-08-28 07:49] VITALS: TEMP 98.8
[2022-08-28] MEDS: Doxepin HCl 25 MG CAP PO SCH (09:23)
[2022-08-28] MEDS: Mometasone/Formoterol 200/5 60 PUFF INH SCH (09:23)
[2022-08-28] MEDS: Apixaban 5 MG TAB PO SCH (09:23)
[2022-08-28] MEDS: Gabapentin 300 MG CAP PO SCH (09:23)
[2022-08-28] MEDS: Potassium Chloride 20 MEQ TAB PO SCH (09:24)
[2022-08-28] MEDS: Metoprolol Tartrate 25 MG TAB PO SCH (09:24)
[2022-08-28] MEDS: DULoxetine 30 MG CAP PO SCH (09:24)
[2022-08-28] MEDS: Furosemide 40 MG TAB PO SCH (09:24)
[2022-08-28] MEDS: Folic Acid 1 MG TAB PO SCH (09:24)
[2022-08-28] MEDS: Nicotine 14 MG PATCH TOP SCH (09:24)
[2022-08-28 17:40] VITALS: BP 78/50
[2022-08-28] MEDS ORDERED: Sodium Chloride 0.9% 1,000 ML ONE (17:49)
== END 2022-08-28 17:30 | disposition short-term general hospital (02) | DRG 561 ==
LOC: MADMS 15:00
PROVIDERS: ADMIT Family Medicine; ATTEND Family Medicine
DX: S52.022D Displaced fracture of olecranon process without intraarticular extension of left ulna, subsequent encounter for closed fracture with routine healing (principal); W18.30XD Fall on same level, unspecified, subsequent encounter; Z20.822 Contact with and (suspected) exposure to COVID-19; R53.1 Weakness; R53.81 Other malaise; S22.019D Unspecified fracture of first thoracic vertebra, subsequent encounter for fracture with routine healing; I48.0 Paroxysmal atrial fibrillation; F17.210 Nicotine dependence, cigarettes, uncomplicated; J44.9 Chronic obstructive pulmonary disease, unspecified; Z96.611 Presence of right artificial shoulder joint; Z96.651 Presence of right artificial knee joint; E03.9 Hypothyroidism, unspecified; M15.9 Polyosteoarthritis, unspecified; F32.A Depression, unspecified; Z87.01 Personal history of pneumonia (recurrent); Z79.01 Long term (current) use of anticoagulants; Z90.49 Acquired absence of other specified parts of digestive tract; Z98.41 Cataract extraction status, right eye; Z98.42 Cataract extraction status, left eye; Z98.1 Arthrodesis status; Z98.51 Tubal ligation status; Z79.899 Other long term (current) drug therapy; Z79.890 Hormone replacement therapy; Z88.1 Allergy status to other antibiotic agents
CPT/HCPCS: 80053; 83036; 85025; 90471; 90662; G0008; J7050; U0002

== ENCOUNTER 2022-08-28 17:22 | Emergency (ER) | payer OTHER ==
[~2022-08-28 17:22] MED LIST changes: +Sodium Chloride 0.9% 1,000 ML BAG ONE; -Sodium Chloride 0.9% 100 ML BAG ONE
[2022-08-28 18:03] LABS: Anisocytosis SLIGHT = 6-15 cells (100X) (0-5/hpf); Band 3 % (5-11); Eosinophils 3 % (0-10); Hemoglobin 11.9 g/dL (12.0-16.0); Hypochromia SLIGHT = 6-15 cells (100X) (0-5/hpf); Lymphocytes 17 % (21-51); MDiff Complete? YES; Mean Corpuscular HGB CONC 32.8 g/dL (32.0-36.0); Mean Corpuscular Hemoglobin 31.5 pg (27.0-31.0); Mean Corpuscular Volume 96.2 fl (78.0-98.0); Mean Platelet Volume 5.8 fL (7.4-10.4); Monocytes 17 % (0-10); Neutrophil 60 % (42-75); Platelet Count 470 10x3/uL (130-400); Platelet Morphology Comment Appears Increased; Red Blood Cell (RBC) Count 3.78 mill/uL (4.20-5.40); Stomatocytes SLIGHT = 2-5 cells (100X) (0-1/hpf); White Blood Cell (WBC) Count 12.2 10x3/uL (4.8-10.8)
[2022-08-28 18:06] LABS: ALT (SGPT) 20 U/L (8-55); AST (SGOT) 27 U/L (5-34); Albumin 3.5 g/dL (3.4-4.8); Alkaline Phosphatase 70 U/L (40-110); Anion Gap 19 mmol/L (10-20); BUN (Urea Nitrogen) 14 mg/dL (9.8-20.1); Bilirubin, Total 0.7 mg/dL (0.2-1.2); Calc. Creatinine Clearance 0 mL/min (70-130); Calcium 9.2 mg/dL (7.8-10.44); Carbon Dioxide 28 mmol/L (23-31); Chloride 94 mmol/L (98-107); Estimated GFR 62; Globulin 3.7 g/dL (2.4-3.5); Glucose 98 mg/dL (83-110); Potassium 3.8 mmol/L (3.5-5.1); Protein, Total 7.2 g/dL (5.8-8.1); Sodium 137 mmol/L (136-145)
[2022-08-28 19:06] LABS: Bilirubin Negative (Negative); Blood, Urine Trace (Negative); Clarity Clear (Clear); Glucose, Urine (Dipstick) Negative (Negative); Ketone, Urine Negative (Negative); Leukocyte Negative (Negative); Nitrite Negative (Negative); Protein, Urine (Dipstick) Negative (Neg-Trace); Urobilinogen 0.2 mg/dL (Less than 2); pH, Urine 6.5 (5.0-9.0)
[2022-08-28 19:15] LABS: RBC/HPF 0-3 HPF (0-3); WBC/HPF 0-3 HPF (0-3)
[2022-08-28 19:16] LABS: Bacteria/HPF Rare-Few HPF (None Seen)
== END 2022-08-28 20:47 | disposition short-term general hospital (02) ==
LOC: MADERS 17:22
DX: S52.022A Displaced fracture of olecranon process without intraarticular extension of left ulna, initial encounter for closed fracture (principal); I48.20 Chronic atrial fibrillation, unspecified; J18.9 Pneumonia, unspecified organism; I25.10 Atherosclerotic heart disease of native coronary artery without angina pectoris; E78.00 Pure hypercholesterolemia, unspecified; I10 Essential (primary) hypertension; E11.9 Type 2 diabetes mellitus without complications; F17.210 Nicotine dependence, cigarettes, uncomplicated; Z79.01 Long term (current) use of anticoagulants; Z79.84 Long term (current) use of oral hypoglycemic drugs; Z79.899 Other long term (current) drug therapy; X58.XXXA Exposure to other specified factors, initial encounter
CPT/HCPCS: 71045; 80053; 81003; 81015; 83605; 84484; 85025; 87040; 87086; 96374; J7050

== ENCOUNTER 2022-09-07 02:20 | Emergency (ER) | payer OTHER ==
[2022-09-07] MEDS ORDERED: Sodium Chloride 0.9% 1,000 ML ONE (03:28)
[2022-09-07] MEDS ORDERED: Ondansetron PF 4 MG/2 ML Vial ONE (03:28)
[2022-09-07 03:37] LABS: #Basophils 0.1 thou/uL (0.0-0.2); #Eosinphils 0.3 thou/uL (0.0-0.7); #Lymphocytes 1.9 thou/uL (1.20-3.40); #Monocytes 1.5 thou/uL (0.11-0.59); #Neutrophils 8.5 thou/uL (1.40-6.50); %Basophils 0.5 % (0.0-1.0); %Eosinophils 2.2 % (0.0-10.0); %Lymphocytes 15.7 % (21.0-51.0); %Monocytes 12.4 % (0.0-10.0); %Neutrophils 69.3 % (42.0-75.0); Hemoglobin 13.3 g/dL (12.0-16.0); Mean Corpuscular HGB CONC 33.8 g/dL (32.0-36.0); Mean Corpuscular Hemoglobin 31.6 pg (27.0-31.0); Mean Corpuscular Volume 93.7 fl (78.0-98.0); Platelet Count 618 10x3/uL (130-400); RBC Distribution Width 12.6 % (11.5-14.5); White Blood Cell (WBC) Count 12.2 10x3/uL (4.8-10.8)
[2022-09-07 03:58] LABS: ALT (SGPT) Less than 7 U/L (8-55); AST (SGOT) 12 U/L (5-34); Albumin 3.4 g/dL (3.4-4.8); Alkaline Phosphatase 72 U/L (40-110); Anion Gap 18 mmol/L (10-20); BUN (Urea Nitrogen) 8 mg/dL (9.8-20.1); Bilirubin, Total 0.7 mg/dL (0.2-1.2); Calc. Creatinine Clearance 0 mL/min (70-130); Calcium 9.2 mg/dL (7.8-10.44); Carbon Dioxide 26 mmol/L (23-31); Chloride 101 mmol/L (98-107); Estimated GFR 82; Globulin 3.2 g/dL (2.4-3.5); Glucose 85 mg/dL (83-110); Magnesium 1.8 mg/dL (1.6-2.6); Potassium 2.8 mmol/L (3.5-5.1); Protein, Total 6.6 g/dL (5.8-8.1); Sodium 142 mmol/L (136-145)
[2022-09-07] MEDS ORDERED: Potassium Chloride 20 MEQ TAB ONE (04:04)
== END 2022-09-07 04:20 | disposition home or self-care (01) ==
LOC: MADERS 02:20
DX: R00.0 Tachycardia, unspecified (principal); R63.0 Anorexia; E87.6 Hypokalemia; I25.10 Atherosclerotic heart disease of native coronary artery without angina pectoris; E11.9 Type 2 diabetes mellitus without complications; I10 Essential (primary) hypertension; J44.9 Chronic obstructive pulmonary disease, unspecified; E78.00 Pure hypercholesterolemia, unspecified; F17.210 Nicotine dependence, cigarettes, uncomplicated; Z79.84 Long term (current) use of oral hypoglycemic drugs; Z79.899 Other long term (current) drug therapy
CPT/HCPCS: 71045; 80053; 83735; 84484; 85025; 93005; 96374; J2405; J7050

== ENCOUNTER 2022-10-01 13:33 | Emergency (ER) | payer OTHER ==
[~2022-10-01 13:33] MED LIST changes: +Iopamidol 370 76% 100 ML VIAL ONE; +Lactated Ringer's 1,000 ML BAG ONE; -Sodium Chloride 0.9% 1,000 ML BAG ONE
[2022-10-01] MEDS ORDERED: Morphine 4 MG/ML VIAL ONE (15:31)
[2022-10-01] MEDS ORDERED: Orphenadrine Citrate 60 MG/2 ML VIAL ONE (15:32)
[2022-10-01 15:38] LABS: #Basophils 0.1 thou/uL (0.0-0.2); #Eosinphils 0.1 thou/uL (0.0-0.7); #Lymphocytes 1.7 thou/uL (1.20-3.40); #Monocytes 1.2 thou/uL (0.11-0.59); #Neutrophils 6.8 thou/uL (1.40-6.50); %Basophils 1.1 % (0.0-1.0); %Eosinophils 1.2 % (0.0-10.0); %Lymphocytes 16.9 % (21.0-51.0); %Monocytes 12.1 % (0.0-10.0); %Neutrophils 68.6 % (42.0-75.0); Hemoglobin 11.3 g/dL (12.0-16.0); Mean Corpuscular Hemoglobin 31.1 pg (27.0-31.0); Mean Corpuscular Volume 94.5 fl (78.0-98.0); Mean Platelet Volume 5.4 fL (7.4-10.4); Platelet Count 378 10x3/uL (130-400); RBC Distribution Width 13.6 % (11.5-14.5); Red Blood Cell (RBC) Count 3.65 mill/uL (4.20-5.40); White Blood Cell (WBC) Count 9.9 10x3/uL (4.8-10.8)
[2022-10-01 15:44] LABS: Prothrombin Time 23.2 sec (12.0-14.7)
[2022-10-01 15:51] LABS: ALT (SGPT) 13 U/L (8-55); AST (SGOT) 20 U/L (5-34); Albumin 2.8 g/dL (3.4-4.8); Alkaline Phosphatase 79 U/L (40-110); Anion Gap 17 mmol/L (10-20); BUN (Urea Nitrogen) 10 mg/dL (9.8-20.1); Bilirubin, Total 0.6 mg/dL (0.2-1.2); Calc. Creatinine Clearance 0 mL/min (70-130); Calcium 8.5 mg/dL (7.8-10.44); Carbon Dioxide 19 mmol/L (23-31); Chloride 106 mmol/L (98-107); Estimated GFR 41; Globulin 2.6 g/dL (2.4-3.5); Glucose 78 mg/dL (83-110); Potassium 4.7 mmol/L (3.5-5.1); Protein, Total 5.4 g/dL (5.8-8.1); Sodium 137 mmol/L (136-145)
[2022-10-01] MEDS ORDERED: Lactated Ringer's 1,000 ML ONE (16:04)
[2022-10-01 20:31] LABS: Bilirubin Negative (Negative); Blood, Urine Trace (Negative); Glucose, Urine (Dipstick) Negative (Negative); Ketone, Urine Trace mg/dL (Negative); Leukocyte Negative (Negative); Nitrite Negative (Negative); Protein, Urine (Dipstick) 30 mg/dL (Neg-Trace); Urobilinogen 0.2 mg/dL (Less than 2); pH, Urine 5.5 (5.0-9.0)
[2022-10-01 20:35] LABS: Bacteria/HPF Rare-Few HPF (None Seen); Clarity Hazy (Clear); RBC/HPF 0-3 HPF (0-3); Squamous Epithelial 0-3 HPF (0-3); WBC/HPF 0-3 HPF (0-3)
[2022-10-01] MEDS ORDERED: Acetaminophen 325 MG TAB PO PRN (21:30)
[2022-10-01] MEDS ORDERED: Ondansetron PF 4 MG/2 ML Vial IVP PRN (21:30)
[2022-10-01] MEDS ORDERED: Ondansetron ODT 4 MG TAB SL PRN (21:30)
[2022-10-01] MEDS ORDERED: Lactated Ringer's 1,000 ML IV SCH (21:45)
[2022-10-01] MEDS ORDERED: Sodium Chloride 0.9% 1,000 ML IV SCH ×2 (22:30→23:00)
== END 2022-10-01 21:04 | disposition critical access hospital (66) ==
LOC: MADERS 13:33
DX: S09.90XA Unspecified injury of head, initial encounter (principal); S10.0XXA Contusion of throat, initial encounter; M25.552 Pain in left hip; N17.9 Acute kidney failure, unspecified; G93.40 Encephalopathy, unspecified; E86.0 Dehydration; K83.8 Other specified diseases of biliary tract; E78.5 Hyperlipidemia, unspecified; I25.10 Atherosclerotic heart disease of native coronary artery without angina pectoris; E11.9 Type 2 diabetes mellitus without complications; J44.9 Chronic obstructive pulmonary disease, unspecified; F17.210 Nicotine dependence, cigarettes, uncomplicated; Z79.01 Long term (current) use of anticoagulants; Z79.84 Long term (current) use of oral hypoglycemic drugs; Z79.899 Other long term (current) drug therapy; W19.XXXA Unspecified fall, initial encounter
CPT/HCPCS: 36416; 70450; 71260; 72125; 74177; 80053; 81003; 81015; 82550; 85025; 85610; 85730; 93005; 94760; J2270; J2360; J7120

== ENCOUNTER 2022-10-01 21:08 | Inpatient (IN) | payer OTHER ==
[2022-10-01] MEDS ORDERED: Doxepin HCl 25 MG CAP PO PRN (21:56)
[2022-10-01] MEDS ORDERED: traMADol HCl 50 MG TAB PO PRN (21:56)
[2022-10-01] MEDS ORDERED: Albuterol 200 PUFF (6.7GM INHALER) INH PRN (21:56)
[2022-10-01] MEDS ORDERED: Ezetimibe 10 MG TAB PO SCH (22:45)
[2022-10-01] MEDS ORDERED: Sodium Chloride 0.9% 1,000 ML IV SCH (23:00)
[2022-10-01] MEDS ORDERED: Rosuvastatin 10 MG TAB PO SCH (23:45)
[2022-10-01] MEDS ORDERED: Apixaban 5 MG TAB PO SCH (23:45)
[2022-10-01 23:56] VITALS: BMI 19.8
[2022-10-02 01:08] LABS: SARS-CoV-2 NAA Rapid Test Not Detected (NotDetected)
[2022-10-02 05:42] LABS: Anion Gap 13 mmol/L (10-20); BUN (Urea Nitrogen) 8 mg/dL (9.8-20.1); Calc. Creatinine Clearance 33 mL/min (70-130); Calcium 8.1 mg/dL (7.8-10.44); Carbon Dioxide 22 mmol/L (23-31); Chloride 108 mmol/L (98-107); Estimated GFR 48; Glucose 91 mg/dL (83-110); Potassium 3.4 mmol/L (3.5-5.1); Sodium 140 mmol/L (136-145)
[2022-10-02] MEDS: HYDROcodone/Acetaminophen 10/325 mg Tablet PO PRN ×2 (05:43→15:24)
[2022-10-02] MEDS: Mometasone/Formoterol 200/5 60 PUFF INH SCH ×2 (08:21→22:21)
[2022-10-02] MEDS: DULoxetine 30 MG CAP PO SCH (08:22)
[2022-10-02] MEDS: CeleCOXIB 100 MG CAP PO SCH ×2 (08:22→22:06)
[2022-10-02] MEDS: Apixaban 5 MG TAB PO SCH ×2 (08:22→22:07)
[2022-10-02] MEDS: Amiodarone 200 MG TAB PO SCH (08:22)
[2022-10-02] MEDS: metFORMIN 500 MG TAB PO SCH (08:22)
[2022-10-02] MEDS: Gabapentin 300 MG CAP PO SCH ×3 (08:23→22:07)
[2022-10-02] MEDS: Potassium Bicarbonate/Cit Ac 20 MEQ TAB PO SCH (08:24)
[2022-10-02] MEDS: Folic Acid 1 MG TAB PO SCH (08:24)
[2022-10-02] MEDS: Pregabalin 50 MG CAP PO SCH ×2 (08:24→22:05)
[2022-10-02] MEDS: sulfaSALAzine 500 MG TAB PO SCH ×2 (08:24→22:05)
[2022-10-02] MEDS ORDERED: Non-Formulary Item 1 EACH (Rosuvastatin [Crestor] 20 MG Tab) PO SCH (09:00)
[2022-10-02] MEDS ORDERED: Metoprolol Tartrate 25 MG TAB PO SCH (09:00)
[2022-10-02] MEDS ORDERED: Ezetimibe 10 MG TAB PO SCH (09:00)
[2022-10-02] MEDS: Nicotine 21 MG PATCH TOP SCH (15:24)
[2022-10-02] MEDS: Nystatin 500,000 UNITS/5 ML UDCUP SSW SCH (22:04)
[2022-10-02] MEDS: Ezetimibe 10 MG TAB PO SCH (22:05)
[2022-10-02] MEDS: Rosuvastatin 10 MG TAB PO SCH (22:07)
[2022-10-03] MEDS: Nystatin 500,000 UNITS/5 ML UDCUP SSW SCH ×5 (08:31→21:45)
[2022-10-03] MEDS: CeleCOXIB 100 MG CAP PO SCH ×2 (08:31→21:46)
[2022-10-03] MEDS: DULoxetine 30 MG CAP PO SCH (08:32)
[2022-10-03] MEDS: Pregabalin 50 MG CAP PO SCH ×2 (08:32→21:47)
[2022-10-03] MEDS: Folic Acid 1 MG TAB PO SCH (08:32)
[2022-10-03] MEDS: Apixaban 5 MG TAB PO SCH ×2 (08:32→21:47)
[2022-10-03] MEDS: Amiodarone 200 MG TAB PO SCH (08:33)
[2022-10-03] MEDS: Potassium Bicarbonate/Cit Ac 20 MEQ TAB PO SCH (08:33)
[2022-10-03] MEDS: metFORMIN 500 MG TAB PO SCH (08:33)
[2022-10-03] MEDS: Gabapentin 300 MG CAP PO SCH ×4 (08:34→21:47)
[2022-10-03] MEDS: sulfaSALAzine 500 MG TAB PO SCH ×2 (08:34→21:46)
[2022-10-03] MEDS: Mometasone/Formoterol 200/5 60 PUFF INH SCH ×2 (08:34→21:48)
[2022-10-03] MEDS: HYDROcodone/Acetaminophen 10/325 mg Tablet PO PRN (11:52)
[2022-10-03] MEDS: Nicotine 21 MG PATCH TOP SCH (15:57)
[2022-10-03] MEDS: Rosuvastatin 10 MG TAB PO SCH (21:46)
[2022-10-03] MEDS: Ezetimibe 10 MG TAB PO SCH (21:46)
[2022-10-04 05:32] LABS: Anion Gap 10 mmol/L (10-20); BUN (Urea Nitrogen) 5 mg/dL (9.8-20.1); Calc. Creatinine Clearance 37 mL/min (70-130); Calcium 8.2 mg/dL (7.8-10.44); Carbon Dioxide 25 mmol/L (23-31); Chloride 111 mmol/L (98-107); Estimated GFR 56; Glucose 84 mg/dL (83-110); Sodium 142 mmol/L (136-145)
[2022-10-04] MEDS: Pregabalin 50 MG CAP PO SCH (08:32)
[2022-10-04] MEDS: Nystatin 500,000 UNITS/5 ML UDCUP SSW SCH ×2 (08:33→12:59)
[2022-10-04] MEDS: Gabapentin 300 MG CAP PO SCH (08:33)
[2022-10-04] MEDS: CeleCOXIB 100 MG CAP PO SCH (08:33)
[2022-10-04] MEDS: metFORMIN 500 MG TAB PO SCH (08:34)
[2022-10-04] MEDS: DULoxetine 30 MG CAP PO SCH (08:35)
[2022-10-04] MEDS: Amiodarone 200 MG TAB PO SCH (08:35)
[2022-10-04] MEDS: Folic Acid 1 MG TAB PO SCH (08:35)
[2022-10-04] MEDS: Potassium Bicarbonate/Cit Ac 20 MEQ TAB PO SCH (08:35)
[2022-10-04] MEDS: Apixaban 5 MG TAB PO SCH (08:35)
[2022-10-04] MEDS: sulfaSALAzine 500 MG TAB PO SCH (08:35)
[2022-10-04] MEDS: Mometasone/Formoterol 200/5 60 PUFF INH SCH (08:43)
[2022-10-04 09:13] VITALS: BP 122/58; TEMP 98.6
== END 2022-10-04 14:00 | disposition home or self-care (01) | DRG 682 ==
LOC: UNDOADMIN 21:08 → MADMS 21:08
PROVIDERS: ADMIT Family Medicine; ATTEND Family Medicine
DX: N17.9 Acute kidney failure, unspecified (principal); E43 Unspecified severe protein-calorie malnutrition; B37.0 Candidal stomatitis; I50.32 Chronic diastolic (congestive) heart failure; Z68.1 Body mass index [BMI] 19.9 or less, adult; R44.3 Hallucinations, unspecified; Z20.822 Contact with and (suspected) exposure to COVID-19; I48.0 Paroxysmal atrial fibrillation; J44.9 Chronic obstructive pulmonary disease, unspecified; M15.9 Polyosteoarthritis, unspecified; G89.4 Chronic pain syndrome; I25.10 Atherosclerotic heart disease of native coronary artery without angina pectoris; E86.0 Dehydration; I11.0 Hypertensive heart disease with heart failure; G62.9 Polyneuropathy, unspecified; R73.03 Prediabetes; M54.9 Dorsalgia, unspecified; M81.0 Age-related osteoporosis without current pathological fracture; F41.9 Anxiety disorder, unspecified; F32.A Depression, unspecified; Z96.651 Presence of right artificial knee joint; Z60.2 Problems related to living alone; F17.210 Nicotine dependence, cigarettes, uncomplicated; D64.9 Anemia, unspecified; E55.9 Vitamin D deficiency, unspecified; Z87.11 Personal history of peptic ulcer disease; Z98.41 Cataract extraction status, right eye; Z86.718 Personal history of other venous thrombosis and embolism; Z79.899 Other long term (current) drug therapy; Z79.01 Long term (current) use of anticoagulants; Z90.49 Acquired absence of other specified parts of digestive tract; Z88.1 Allergy status to other antibiotic agents; Z79.84 Long term (current) use of oral hypoglycemic drugs; Z98.42 Cataract extraction status, left eye; Z98.51 Tubal ligation status; Z82.49 Family history of ischemic heart disease and other diseases of the circulatory system; Z83.3 Family history of diabetes mellitus; Z82.3 Family history of stroke; R62.7 Adult failure to thrive; R53.81 Other malaise; E87.6 Hypokalemia; T40.2X5A Adverse effect of other opioids, initial encounter
CPT/HCPCS: 36415; 36416; 70450; 71260; 72125; 74177; 80048; 80053; 81003; 81015; 82550; 85025; 85610; 85730; 93005; 94664; 94760; 96361; 96374; 96375; J2270; J2360; J7050; J7120; Q9967; U0002

== ENCOUNTER 2022-10-04 14:22 | Inpatient (IN) | payer OTHER ==
[2022-10-04] MEDS: CeleCOXIB 100 MG CAP PO SCH (20:28)
[2022-10-04] MEDS: Rosuvastatin 10 MG TAB PO SCH (20:30)
[2022-10-04] MEDS: Apixaban 5 MG TAB PO SCH (20:30)
[2022-10-04] MEDS: Ezetimibe 10 MG TAB PO SCH (20:30)
[2022-10-04] MEDS: Gabapentin 300 MG CAP PO SCH (20:30)
[2022-10-04] MEDS: Nystatin 500,000 UNITS/5 ML UDCUP SSW SCH (20:31)
[2022-10-04] MEDS: Pregabalin 50 MG CAP PO SCH (20:31)
[2022-10-04] MEDS: Mometasone/Formoterol 200/5 60 PUFF INH SCH (20:31)
[2022-10-04] MEDS: sulfaSALAzine 500 MG TAB PO SCH (20:31)
[2022-10-04] MEDS ORDERED: Non-Formulary Item 1 EACH (Celecoxib [Celecoxib] 200 MG Capsule) PO SCH (21:00)
[2022-10-04] MEDS: traMADol HCl 50 MG TAB PO PRN (21:51)
[2022-10-05] MEDS: Nystatin 500,000 UNITS/5 ML UDCUP SSW SCH ×4 (08:22→22:12)
[2022-10-05] MEDS: CeleCOXIB 100 MG CAP PO SCH ×2 (08:22→22:11)
[2022-10-05] MEDS: Pregabalin 50 MG CAP PO SCH ×2 (08:22→22:11)
[2022-10-05] MEDS: Folic Acid 1 MG TAB PO SCH (08:22)
[2022-10-05] MEDS: sulfaSALAzine 500 MG TAB PO SCH ×2 (08:22→22:09)
[2022-10-05] MEDS: Gabapentin 300 MG CAP PO SCH ×4 (08:23→22:10)
[2022-10-05] MEDS: DULoxetine 30 MG CAP PO SCH (08:23)
[2022-10-05] MEDS: metFORMIN 500 MG TAB PO SCH (08:24)
[2022-10-05] MEDS: Apixaban 5 MG TAB PO SCH ×2 (08:24→22:09)
[2022-10-05] MEDS: Nicotine 21 MG PATCH TOP SCH (08:25)
[2022-10-05] MEDS: Amiodarone 200 MG TAB PO SCH (08:33)
[2022-10-05] MEDS: Mometasone/Formoterol 200/5 60 PUFF INH SCH ×2 (08:57→22:13)
[2022-10-05] MEDS: Ezetimibe 10 MG TAB PO SCH (22:09)
[2022-10-05] MEDS: Rosuvastatin 10 MG TAB PO SCH (22:09)
[2022-10-06] MEDS: CeleCOXIB 100 MG CAP PO SCH ×2 (09:04→20:46)
[2022-10-06] MEDS: Pregabalin 50 MG CAP PO SCH ×2 (09:04→20:47)
[2022-10-06] MEDS: Nystatin 500,000 UNITS/5 ML UDCUP SSW SCH ×4 (09:04→20:45)
[2022-10-06] MEDS: Apixaban 5 MG TAB PO SCH ×2 (09:05→20:47)
[2022-10-06] MEDS: metFORMIN 500 MG TAB PO SCH (09:05)
[2022-10-06] MEDS: Gabapentin 300 MG CAP PO SCH ×3 (09:05→20:48)
[2022-10-06] MEDS: DULoxetine 30 MG CAP PO SCH (09:05)
[2022-10-06] MEDS: Nicotine 21 MG PATCH TOP SCH (09:05)
[2022-10-06] MEDS: Folic Acid 1 MG TAB PO SCH (09:05)
[2022-10-06] MEDS: sulfaSALAzine 500 MG TAB PO SCH ×2 (09:05→20:45)
[2022-10-06] MEDS: Amiodarone 200 MG TAB PO SCH (09:05)
[2022-10-06] MEDS: Mometasone/Formoterol 200/5 60 PUFF INH SCH ×2 (09:07→20:48)
[2022-10-06] MEDS: Ezetimibe 10 MG TAB PO SCH (20:45)
[2022-10-06] MEDS: Rosuvastatin 10 MG TAB PO SCH (20:46)
[2022-10-06] MEDS: HYDROcodone/Acetaminophen 10/325 mg Tablet PO PRN (20:47)
[2022-10-07] MEDS: Nystatin 500,000 UNITS/5 ML UDCUP SSW SCH ×4 (09:42→21:15)
[2022-10-07] MEDS: Folic Acid 1 MG TAB PO SCH (09:42)
[2022-10-07] MEDS: metFORMIN 500 MG TAB PO SCH (09:43)
[2022-10-07] MEDS: CeleCOXIB 100 MG CAP PO SCH ×2 (09:43→21:16)
[2022-10-07] MEDS: Amiodarone 200 MG TAB PO SCH (09:43)
[2022-10-07] MEDS: DULoxetine 30 MG CAP PO SCH (09:44)
[2022-10-07] MEDS: sulfaSALAzine 500 MG TAB PO SCH ×2 (09:45→21:15)
[2022-10-07] MEDS: Gabapentin 300 MG CAP PO SCH ×3 (09:45→21:15)
[2022-10-07] MEDS: Apixaban 5 MG TAB PO SCH ×2 (09:45→22:33)
[2022-10-07] MEDS: Pregabalin 50 MG CAP PO SCH ×2 (09:45→21:14)
[2022-10-07] MEDS: Nicotine 21 MG PATCH TOP SCH (09:46)
[2022-10-07] MEDS: Mometasone/Formoterol 200/5 60 PUFF INH SCH ×2 (09:46→21:13)
[2022-10-07] MEDS: Ezetimibe 10 MG TAB PO SCH (21:15)
[2022-10-07] MEDS: HYDROcodone/Acetaminophen 10/325 mg Tablet PO PRN (21:15)
[2022-10-07] MEDS: Rosuvastatin 10 MG TAB PO SCH (21:15)
[2022-10-08] MEDS: Amiodarone 200 MG TAB PO SCH (09:30)
[2022-10-08] MEDS: metFORMIN 500 MG TAB PO SCH (09:30)
[2022-10-08] MEDS: CeleCOXIB 100 MG CAP PO SCH ×2 (09:30→20:06)
[2022-10-08] MEDS: Apixaban 5 MG TAB PO SCH ×2 (09:30→20:06)
[2022-10-08] MEDS: DULoxetine 30 MG CAP PO SCH (09:31)
[2022-10-08] MEDS: Pregabalin 50 MG CAP PO SCH ×2 (09:31→20:08)
[2022-10-08] MEDS: Nystatin 500,000 UNITS/5 ML UDCUP SSW SCH ×4 (09:32→23:16)
[2022-10-08] MEDS: Mometasone/Formoterol 200/5 60 PUFF INH SCH ×2 (09:32→20:08)
[2022-10-08] MEDS: Nicotine 21 MG PATCH TOP SCH (09:33)
[2022-10-08] MEDS: Folic Acid 1 MG TAB PO SCH (09:33)
[2022-10-08] MEDS: Gabapentin 300 MG CAP PO SCH ×3 (09:33→20:07)
[2022-10-08] MEDS: sulfaSALAzine 500 MG TAB PO SCH ×2 (09:36→20:05)
[2022-10-08] MEDS: HYDROcodone/Acetaminophen 10/325 mg Tablet PO PRN (19:22)
[2022-10-08] MEDS: Ezetimibe 10 MG TAB PO SCH (20:05)
[2022-10-08] MEDS: Rosuvastatin 10 MG TAB PO SCH (21:47)
[2022-10-09] MEDS: Nystatin 500,000 UNITS/5 ML UDCUP SSW SCH ×4 (08:01→22:43)
[2022-10-09] MEDS: sulfaSALAzine 500 MG TAB PO SCH ×2 (08:01→21:47)
[2022-10-09] MEDS: metFORMIN 500 MG TAB PO SCH (08:01)
[2022-10-09] MEDS: DULoxetine 30 MG CAP PO SCH (08:01)
[2022-10-09] MEDS: CeleCOXIB 100 MG CAP PO SCH ×2 (08:02→21:46)
[2022-10-09] MEDS: Amiodarone 200 MG TAB PO SCH (08:02)
[2022-10-09] MEDS: Apixaban 5 MG TAB PO SCH ×2 (08:02→21:47)
[2022-10-09] MEDS: Gabapentin 300 MG CAP PO SCH ×3 (08:02→21:48)
[2022-10-09] MEDS: Folic Acid 1 MG TAB PO SCH (08:02)
[2022-10-09] MEDS: Mometasone/Formoterol 200/5 60 PUFF INH SCH ×2 (08:03→21:43)
[2022-10-09] MEDS: Pregabalin 50 MG CAP PO SCH ×2 (08:03→21:52)
[2022-10-09] MEDS: Nicotine 21 MG PATCH TOP SCH (08:04)
[2022-10-09] MEDS: HYDROcodone/Acetaminophen 10/325 mg Tablet PO PRN (18:12)
[2022-10-09] MEDS: Ezetimibe 10 MG TAB PO SCH (21:47)
[2022-10-09] MEDS: Rosuvastatin 10 MG TAB PO SCH (21:47)
[2022-10-10] MEDS: Nystatin 500,000 UNITS/5 ML UDCUP SSW SCH ×4 (08:58→21:35)
[2022-10-10] MEDS: Apixaban 5 MG TAB PO SCH ×2 (08:58→21:34)
[2022-10-10] MEDS: DULoxetine 30 MG CAP PO SCH (08:58)
[2022-10-10] MEDS: sulfaSALAzine 500 MG TAB PO SCH ×2 (08:58→21:35)
[2022-10-10] MEDS: Amiodarone 200 MG TAB PO SCH (08:58)
[2022-10-10] MEDS: Pregabalin 50 MG CAP PO SCH ×2 (08:58→21:35)
[2022-10-10] MEDS: Gabapentin 300 MG CAP PO SCH ×3 (08:58→21:35)
[2022-10-10] MEDS: metFORMIN 500 MG TAB PO SCH (08:59)
[2022-10-10] MEDS: CeleCOXIB 100 MG CAP PO SCH ×2 (08:59→21:33)
[2022-10-10] MEDS: Folic Acid 1 MG TAB PO SCH (08:59)
[2022-10-10] MEDS: Mometasone/Formoterol 200/5 60 PUFF INH SCH ×2 (09:00→21:36)
[2022-10-10] MEDS: Nicotine 21 MG PATCH TOP SCH (09:04)
[2022-10-10 10:09] VITALS: BMI 21.5
[2022-10-10] MEDS: Ezetimibe 10 MG TAB PO SCH (21:35)
[2022-10-10] MEDS: Rosuvastatin 10 MG TAB PO SCH (21:42)
[2022-10-11 05:01] LABS: Hemoglobin 10.4 g/dL (12.0-16.0); Platelet Count 259 10x3/uL (130-400)
[2022-10-11] MEDS: traMADol HCl 50 MG TAB PO PRN (05:10)
[2022-10-11] MEDS: Mometasone/Formoterol 200/5 60 PUFF INH SCH ×2 (09:14→21:39)
[2022-10-11] MEDS: Nicotine 21 MG PATCH TOP SCH (09:16)
[2022-10-11] MEDS: Nystatin 500,000 UNITS/5 ML UDCUP SSW SCH ×4 (09:16→21:37)
[2022-10-11] MEDS: DULoxetine 30 MG CAP PO SCH (09:16)
[2022-10-11] MEDS: Folic Acid 1 MG TAB PO SCH (09:16)
[2022-10-11] MEDS: sulfaSALAzine 500 MG TAB PO SCH ×2 (09:16→21:37)
[2022-10-11] MEDS: Apixaban 5 MG TAB PO SCH ×2 (09:17→21:37)
[2022-10-11] MEDS: metFORMIN 500 MG TAB PO SCH (09:17)
[2022-10-11] MEDS: CeleCOXIB 100 MG CAP PO SCH ×2 (09:18→21:38)
[2022-10-11] MEDS: Amiodarone 200 MG TAB PO SCH (09:18)
[2022-10-11] MEDS: Pregabalin 50 MG CAP PO SCH ×2 (09:18→21:39)
[2022-10-11] MEDS: Gabapentin 300 MG CAP PO SCH ×3 (09:18→21:37)
[2022-10-11] MEDS: HYDROcodone/Acetaminophen 10/325 mg Tablet PO PRN (13:42)
[2022-10-11] MEDS: Ezetimibe 10 MG TAB PO SCH (21:37)
[2022-10-11] MEDS: Rosuvastatin 10 MG TAB PO SCH (21:38)
[2022-10-12] MEDS: traMADol HCl 50 MG TAB PO PRN (00:54)
[2022-10-12] MEDS: metFORMIN 500 MG TAB PO SCH (09:09)
[2022-10-12] MEDS: Amiodarone 200 MG TAB PO SCH (09:09)
[2022-10-12] MEDS: Apixaban 5 MG TAB PO SCH ×2 (09:09→21:08)
[2022-10-12] MEDS: Folic Acid 1 MG TAB PO SCH (09:09)
[2022-10-12] MEDS: sulfaSALAzine 500 MG TAB PO SCH ×2 (09:09→21:08)
[2022-10-12] MEDS: Mometasone/Formoterol 200/5 60 PUFF INH SCH ×2 (09:10→21:10)
[2022-10-12] MEDS: Nystatin 500,000 UNITS/5 ML UDCUP SSW SCH ×4 (09:10→21:08)
[2022-10-12] MEDS: Gabapentin 300 MG CAP PO SCH ×3 (09:10→21:09)
[2022-10-12] MEDS: CeleCOXIB 100 MG CAP PO SCH ×2 (09:10→21:08)
[2022-10-12] MEDS: DULoxetine 30 MG CAP PO SCH (09:10)
[2022-10-12] MEDS: Nicotine 21 MG PATCH TOP SCH (09:14)
[2022-10-12] MEDS: Pregabalin 50 MG CAP PO SCH ×2 (09:15→21:09)
[2022-10-12] MEDS: Ezetimibe 10 MG TAB PO SCH (21:08)
[2022-10-12] MEDS: Rosuvastatin 10 MG TAB PO SCH (21:08)
[2022-10-13] MEDS: traMADol HCl 50 MG TAB PO PRN ×3 (05:22→20:47)
[2022-10-13] MEDS: sulfaSALAzine 500 MG TAB PO SCH ×2 (08:29→20:39)
[2022-10-13] MEDS: Pregabalin 50 MG CAP PO SCH ×2 (08:30→20:41)
[2022-10-13] MEDS: Folic Acid 1 MG TAB PO SCH (08:30)
[2022-10-13] MEDS: metFORMIN 500 MG TAB PO SCH (08:30)
[2022-10-13] MEDS: Apixaban 5 MG TAB PO SCH ×2 (08:30→20:41)
[2022-10-13] MEDS: Nystatin 500,000 UNITS/5 ML UDCUP SSW SCH ×4 (08:30→20:41)
[2022-10-13] MEDS: Amiodarone 200 MG TAB PO SCH (08:31)
[2022-10-13] MEDS: CeleCOXIB 100 MG CAP PO SCH ×2 (08:31→20:41)
[2022-10-13] MEDS: Nicotine 21 MG PATCH TOP SCH (08:32)
[2022-10-13] MEDS: Mometasone/Formoterol 200/5 60 PUFF INH SCH ×2 (08:33→20:42)
[2022-10-13] MEDS: Gabapentin 300 MG CAP PO SCH ×3 (08:35→20:40)
[2022-10-13] MEDS: DULoxetine 30 MG CAP PO SCH (08:35)
[2022-10-13] MEDS: Ezetimibe 10 MG TAB PO SCH (20:39)
[2022-10-13] MEDS: Rosuvastatin 10 MG TAB PO SCH (20:41)
[2022-10-14] MEDS: sulfaSALAzine 500 MG TAB PO SCH ×2 (08:13→20:14)
[2022-10-14] MEDS: Nystatin 500,000 UNITS/5 ML UDCUP SSW SCH ×5 (08:13→21:45)
[2022-10-14] MEDS: Pregabalin 50 MG CAP PO SCH ×2 (08:14→20:17)
[2022-10-14] MEDS: Folic Acid 1 MG TAB PO SCH (08:14)
[2022-10-14] MEDS: Gabapentin 300 MG CAP PO SCH ×3 (08:14→20:16)
[2022-10-14] MEDS: DULoxetine 30 MG CAP PO SCH (08:15)
[2022-10-14] MEDS: CeleCOXIB 100 MG CAP PO SCH (08:15)
[2022-10-14] MEDS: Apixaban 5 MG TAB PO SCH ×2 (08:15→20:15)
[2022-10-14] MEDS: Mometasone/Formoterol 200/5 60 PUFF INH SCH ×2 (08:17→20:15)
[2022-10-14] MEDS: metFORMIN 500 MG TAB PO SCH (08:18)
[2022-10-14] MEDS: Amiodarone 200 MG TAB PO SCH (08:18)
[2022-10-14] MEDS: Nicotine 21 MG PATCH TOP SCH (09:07)
[2022-10-14 13:21] LABS: #Basophils 0.1 thou/uL (0.0-0.2); #Eosinphils 0.3 thou/uL (0.0-0.7); #Lymphocytes 2.2 thou/uL (1.20-3.40); #Monocytes 0.9 thou/uL (0.11-0.59); %Basophils 1.4 % (0.0-1.0); %Lymphocytes 29.3 % (21.0-51.0); %Monocytes 12.5 % (0.0-10.0); %Neutrophils 52.8 % (42.0-75.0); Hemoglobin 11.2 g/dL (12.0-16.0); Mean Corpuscular HGB CONC 33.1 g/dL (32.0-36.0); Mean Corpuscular Hemoglobin 31.4 pg (27.0-31.0); Mean Corpuscular Volume 94.8 fl (78.0-98.0); Mean Platelet Volume 6.6 fL (7.4-10.4); Platelet Count 291 10x3/uL (130-400); RBC Distribution Width 13.9 % (11.5-14.5); Red Blood Cell (RBC) Count 3.56 mill/uL (4.20-5.40); White Blood Cell (WBC) Count 7.5 10x3/uL (4.8-10.8)
[2022-10-14 13:35] LABS: Chloride 104 mmol/L (98-107); Sodium 139 mmol/L (136-145)
[2022-10-14 13:36] LABS: Anion Gap 15 mmol/L (10-20); BUN (Urea Nitrogen) 12 mg/dL (9.8-20.1); Calc. Creatinine Clearance 50 mL/min (70-130); Calcium 9.2 mg/dL (7.6-10.4); Carbon Dioxide 24 mmol/L (23-31); Estimated GFR 76; Glucose 95 mg/dL (83-110)
[2022-10-14 13:46] LABS: INR-International Normal Ratio 1.3; Prothrombin Time 17.1 sec (12.0-14.7)
[2022-10-14 13:47] LABS: PTT 39.7 sec (22.9-36.1)
[2022-10-14] MEDS: Ezetimibe 10 MG TAB PO SCH (20:15)
[2022-10-14] MEDS: Rosuvastatin 10 MG TAB PO SCH (20:21)
[2022-10-15] MEDS: HYDROcodone/Acetaminophen 10/325 mg Tablet PO PRN ×2 (01:51→09:07)
[2022-10-15 08:52] VITALS: BP 124/64; TEMP 98.2
[2022-10-15] MEDS: sulfaSALAzine 500 MG TAB PO SCH (09:00)
[2022-10-15] MEDS: metFORMIN 500 MG TAB PO SCH (09:00)
[2022-10-15] MEDS: Folic Acid 1 MG TAB PO SCH (09:01)
[2022-10-15] MEDS: Pregabalin 50 MG CAP PO SCH (09:01)
[2022-10-15] MEDS: DULoxetine 30 MG CAP PO SCH (09:01)
[2022-10-15] MEDS: Apixaban 5 MG TAB PO SCH (09:01)
[2022-10-15] MEDS: Amiodarone 200 MG TAB PO SCH (09:02)
[2022-10-15] MEDS: Nicotine 21 MG PATCH TOP SCH (09:02)
[2022-10-15] MEDS: Mometasone/Formoterol 200/5 60 PUFF INH SCH (09:02)
[2022-10-15 09:03] LABS: #Basophils 0.1 thou/uL (0.0-0.2); #Eosinphils 0.2 thou/uL (0.0-0.7); #Monocytes 0.8 thou/uL (0.11-0.59); #Neutrophils 2.7 thou/uL (1.40-6.50); %Basophils 1.2 % (0.0-1.0); %Eosinophils 3.9 % (0.0-10.0); %Lymphocytes 33.9 % (21.0-51.0); %Monocytes 14.3 % (0.0-10.0); %Neutrophils 46.9 % (42.0-75.0); Hemoglobin 11.3 g/dL (12.0-16.0); Mean Corpuscular HGB CONC 33.9 g/dL (32.0-36.0); Mean Corpuscular Hemoglobin 31.8 pg (27.0-31.0); Mean Corpuscular Volume 93.7 fl (78.0-98.0); Platelet Count 274 10x3/uL (130-400); RBC Distribution Width 13.9 % (11.5-14.5); Red Blood Cell (RBC) Count 3.55 mill/uL (4.20-5.40); White Blood Cell (WBC) Count 5.8 10x3/uL (4.8-10.8)
[2022-10-15] MEDS: Gabapentin 300 MG CAP PO SCH (09:03)
[2022-10-15] MEDS: Nystatin 500,000 UNITS/5 ML UDCUP SSW SCH (09:08)
== END 2022-10-15 10:45 | disposition home health service (06) | DRG 947 ==
LOC: MADMS 14:22
PROVIDERS: ADMIT Family Medicine; ATTEND Family Medicine
DX: R53.81 Other malaise (principal); E43 Unspecified severe protein-calorie malnutrition; I50.32 Chronic diastolic (congestive) heart failure; R53.1 Weakness; R29.6 Repeated falls; R26.81 Unsteadiness on feet; G89.4 Chronic pain syndrome; I48.0 Paroxysmal atrial fibrillation; R62.7 Adult failure to thrive; I11.0 Hypertensive heart disease with heart failure; Z20.822 Contact with and (suspected) exposure to COVID-19; J44.9 Chronic obstructive pulmonary disease, unspecified; Z98.890 Other specified postprocedural states; Z79.01 Long term (current) use of anticoagulants; Z88.1 Allergy status to other antibiotic agents; Z88.8 Allergy status to other drugs, medicaments and biological substances; Z68.21 Body mass index [BMI] 21.0-21.9, adult
CPT/HCPCS: 36416; 80048; 85014; 85018; 85025; 85049; 85610; 85730; 87811; 94664; 36415-59

== ENCOUNTER 2023-03-11 22:26 | Emergency (ER) | payer OTHER ==
[2023-03-12] MEDS ORDERED: Acetaminophen 500 MG TAB ONE (01:00)
== END 2023-03-12 01:19 | disposition home or self-care (01) ==
LOC: MADERS 22:26
DX: S52.501A Unspecified fracture of the lower end of right radius, initial encounter for closed fracture (principal); S22.31XA Fracture of one rib, right side, initial encounter for closed fracture; I25.10 Atherosclerotic heart disease of native coronary artery without angina pectoris; E11.9 Type 2 diabetes mellitus without complications; I10 Essential (primary) hypertension; E78.00 Pure hypercholesterolemia, unspecified; F17.210 Nicotine dependence, cigarettes, uncomplicated; Z79.899 Other long term (current) drug therapy; W01.0XXA Fall on same level from slipping, tripping and stumbling without subsequent striking against object, initial encounter
CPT/HCPCS: 29105; 94799

== ENCOUNTER 2023-06-16 21:28 | Emergency (ER) | payer OTHER ==
[~2023-06-16 21:28] MED LIST changes: -Iopamidol 370 76% 100 ML VIAL ONE; +Iopamidol 370 76% 200 ML VIAL ONE; -Lactated Ringer's 1,000 ML BAG ONE
[2023-06-16 22:42] LABS: Chloride 101 mmol/L (98-107); Sodium 144 mmol/L (136-145)
[2023-06-16 22:45] LABS: Hemoglobin 13.8 g/dL (12.0-16.0); Lymphocytes 31 % (21-51); MDiff Complete? YES; Mean Corpuscular HGB CONC 33.6 g/dL (32.0-36.0); Mean Corpuscular Hemoglobin 32.1 pg (27.0-31.0); Mean Corpuscular Volume 95.5 fl (78.0-98.0); Monocytes 9 % (0-10); Neutrophil 60 % (42-75); Platelet Adequacy Comment Appears Adequate; Platelet Count 231 10x3/uL (130-400); RBC Distribution Width 13.6 % (11.5-14.5); Red Blood Cell (RBC) Count 4.29 mill/uL (4.20-5.40)
[2023-06-16 22:52] LABS: Troponin I Less than 0.010 ng/mL (< 0.028)
[2023-06-16 23:00] LABS: ALT (SGPT) 8 U/L (8-55); AST (SGOT) 16 U/L (5-34); Albumin 3.6 g/dL (3.4-4.8); Alkaline Phosphatase 67 U/L (40-110); BUN (Urea Nitrogen) 6 mg/dL (9.8-20.1); Bilirubin, Total 0.4 mg/dL (0.2-1.2); Calc. Creatinine Clearance 0 mL/min (70-130); Calcium 8.7 mg/dL (7.8-10.44); Carbon Dioxide 27 mmol/L (23-31); Estimated GFR 72; Globulin 2.3 g/dL (2.4-3.5); Glucose 86 mg/dL (83-110); Lipase 7 U/L (8-78); Protein, Total 5.9 g/dL (5.8-8.1)
[2023-06-16 23:05] LABS: Potassium 2.6 mmol/L (3.5-5.1)
[2023-06-16 23:06] LABS: Anion Gap 19 mmol/L (10-20)
[2023-06-16] MEDS ORDERED: Potassium Chloride 20 MEQ/100 ML PREMIX BAG ONE (23:21)
[2023-06-16] MEDS ORDERED: Potassium Chloride 20 MEQ TAB ONE (23:21)
[2023-06-16] MEDS ORDERED: Sodium Chloride 0.9% 1,000 ML ONE (23:21)
[2023-06-16 23:30] LABS: Magnesium 1.8 mg/dL (1.6-2.6)
[2023-06-17 01:49] LABS: Troponin I 0.018 ng/mL (< 0.028)
== END 2023-06-17 03:58 | disposition short-term general hospital (02) ==
LOC: MADERS 21:28
DX: R07.89 Other chest pain (principal); E87.6 Hypokalemia; I25.10 Atherosclerotic heart disease of native coronary artery without angina pectoris; E11.9 Type 2 diabetes mellitus without complications; I10 Essential (primary) hypertension; J44.9 Chronic obstructive pulmonary disease, unspecified; E78.00 Pure hypercholesterolemia, unspecified; F17.210 Nicotine dependence, cigarettes, uncomplicated; Z79.899 Other long term (current) drug therapy
CPT/HCPCS: 36415; 71045; 74177; 80053; 83690; 83735; 83880; 84484; 85025; 93005; 94760; 96365; 96366; J3480; J7050

== ENCOUNTER 2023-09-16 10:00 | Emergency (ER) | payer OTHER ==
[~2023-09-16 10:00] MED LIST changes: +Iopamidol 370 76% 100 ML VIAL ONE; -Iopamidol 370 76% 200 ML VIAL ONE; +Sodium Chloride 0.9% 100 ML BAG ONE
[2023-09-16] MEDS ORDERED: Ipratropium/Albuterol 3 ML NEB ONE (10:26)
[2023-09-16] MEDS ORDERED: Ondansetron PF 4 MG/2 ML Vial ONE (10:26)
[2023-09-16] MEDS ORDERED: methylPREDNISolone Sod Succ/PF 125 MG/2 ML VIAL ONE (10:26)
[2023-09-16 10:59] LABS: INR-International Normal Ratio 1.5; Prothrombin Time 19.1 sec (12.0-14.7)
[2023-09-16 11:09] LABS: Anion Gap 16 mmol/L (10-20); BUN (Urea Nitrogen) 12 mg/dL (9.8-20.1); Calc. Creatinine Clearance 0 mL/min (70-130); Carbon Dioxide 25 mmol/L (23-31); Chloride 101 mmol/L (98-107); Estimated GFR 78; Glucose 88 mg/dL (83-110); Potassium 3.6 mmol/L (3.5-5.1); Sodium 138 mmol/L (136-145)
[2023-09-16 11:11] LABS: Band 1 % (5-11); Eosinophils 2 % (0-10); Hematocrit 33.3 % (36.0-47.0); Hemoglobin 11.2 g/dL (12.0-16.0); Lymphocytes 11 % (21-51); MDiff Complete? YES; Manual Diff?? YES; Mean Corpuscular HGB CONC 33.5 g/dL (32.0-36.0); Mean Corpuscular Hemoglobin 32.9 pg (27.0-31.0); Mean Corpuscular Volume 98.1 fl (78.0-98.0); Mean Platelet Volume 5.9 fL (7.4-10.4); Monocytes 4 % (0-10); Neutrophil 80 % (42-75); Platelet Adequacy Comment Appears Adequate; Platelet Count 302 10x3/uL (130-400); Polychromasia SLIGHT = 2-3 cells (100X) (0-2/hpf); RBC Distribution Width 11.8 % (11.5-14.5); Reactive Lymphocytes 2 % (0-10); Troponin I Less than 0.010 ng/mL (< 0.028); White Blood Cell (WBC) Count 8.7 10x3/uL (4.8-10.8)
[2023-09-16 13:30] LABS: Troponin I Less than 0.010 ng/mL (< 0.028)
== END 2023-09-16 14:45 | disposition home or self-care (01) ==
LOC: MADERS 10:00
DX: J44.1 Chronic obstructive pulmonary disease with (acute) exacerbation (principal); E86.0 Dehydration; I26.09 Other pulmonary embolism with acute cor pulmonale; I31.39 Other pericardial effusion (noninflammatory); I25.10 Atherosclerotic heart disease of native coronary artery without angina pectoris; I48.91 Unspecified atrial fibrillation; I10 Essential (primary) hypertension; E11.9 Type 2 diabetes mellitus without complications; Z79.899 Other long term (current) drug therapy; Z79.01 Long term (current) use of anticoagulants
CPT/HCPCS: 36415; 71275; 80048; 83605; 83880; 84484; 85025; 85610; 85730; 87040; 93005; 96361; 96374; 96375; J2405; J2930; J3490; J7620; Q9967

== ENCOUNTER 2023-09-18 14:22 | Emergency (ER) | payer OTHER ==
[2023-09-18 16:12] LABS: Hematocrit 35.3 % (36.0-47.0); Hemoglobin 11.7 g/dL (12.0-16.0); MDiff Complete? YES; Mean Corpuscular HGB CONC 33.2 g/dL (32.0-36.0); Mean Corpuscular Hemoglobin 32.7 pg (27.0-31.0); Mean Corpuscular Volume 98.5 fl (78.0-98.0); Mean Platelet Volume 5.8 fL (7.4-10.4); Platelet Count 338 10x3/uL (130-400); RBC Distribution Width 11.9 % (11.5-14.5); Red Blood Cell (RBC) Count 3.58 mill/uL (4.20-5.40); White Blood Cell (WBC) Count 12.3 10x3/uL (4.8-10.8)
[2023-09-18 16:13] LABS: Band 1 % (5-11); Eosinophils 1 % (0-10); Lymphocytes 19 % (21-51); Monocytes 10 % (0-10); Neutrophil 69 % (42-75); Platelet Adequacy Comment Appears Adequate
[2023-09-18] MEDS ORDERED: Acetaminophen 325 MG TAB ONE (16:13)
[2023-09-18 16:22] LABS: Anion Gap 16 mmol/L (10-20); BUN (Urea Nitrogen) 9 mg/dL (9.8-20.1); Calc. Creatinine Clearance 0 mL/min (70-130); Calcium 8.8 mg/dL (7.8-10.44); Carbon Dioxide 24 mmol/L (23-31); Chloride 101 mmol/L (98-107); Estimated GFR 75; Glucose 72 mg/dL (83-110); Magnesium 1.8 mg/dL (1.6-2.6); Potassium 2.7 mmol/L (3.5-5.1); Sodium 138 mmol/L (136-145); Troponin I Less than 0.010 ng/mL (< 0.028)
[2023-09-18] MEDS ORDERED: Amiodarone 150 MG/3 ML VIAL ONE (18:10)
[2023-09-18] MEDS ORDERED: Dextrose 5% in Water 100 ML ONE (18:11)
[2023-09-18 18:29] LABS: Bilirubin Negative (Negative); Blood, Urine Small (Negative); Clarity Hazy (Clear); Glucose, Urine (Dipstick) Negative (Negative); Ketone, Urine Negative (Negative); Leukocyte Negative (Negative); Nitrite Negative (Negative); Protein, Urine (Dipstick) 100 mg/dL (Neg-Trace); Specific Gravity, Urine 1.015 (1.005-1.030); Urobilinogen 0.2 mg/dL (Less than 2); pH, Urine 6.5 (5.0-9.0)
[2023-09-18 18:30] LABS: Bacteria/HPF 1+ HPF (None Seen); CAUTI Indications for Culture Dysuria,urgency,freq; WBC/HPF 0-3 HPF (0-3)
[2023-09-18 18:31] LABS: Urine Culture Reflex No No
[2023-09-18] MEDS ORDERED: Ondansetron PF 4 MG/2 ML Vial ONE (20:19)
[2023-09-18] MEDS ORDERED: Morphine 2 MG/ML VIAL ONE (20:20)
[2023-09-18] MEDS ORDERED: Metoprolol Tartrate 5 MG (5 mL) VIAL ONE (21:35)
[2023-09-18] MEDS ORDERED: Metoprolol Tartrate 50 MG TAB ONE (22:57)
== END 2023-09-19 00:20 | disposition home or self-care (01) ==
LOC: MADERS 14:22
DX: I48.91 Unspecified atrial fibrillation (principal); J44.9 Chronic obstructive pulmonary disease, unspecified; I25.10 Atherosclerotic heart disease of native coronary artery without angina pectoris; E11.9 Type 2 diabetes mellitus without complications; Z86.711 Personal history of pulmonary embolism; F17.210 Nicotine dependence, cigarettes, uncomplicated; Z79.899 Other long term (current) drug therapy
CPT/HCPCS: 36415; 36416; 71046; 80048; 81001; 83605; 83735; 83880; 84484; 85025; 87635; 87804; 96365; 96375; J0282; J2272; J2405; J7070

== ENCOUNTER 2023-10-04 18:31 | Emergency (ER) | payer OTHER, MEDICAID ==
[2023-10-04] MEDS ORDERED: methylPREDNISolone Sod Succ/PF 125 MG/2 ML VIAL ONE (19:29)
[2023-10-04] MEDS ORDERED: Ondansetron PF 4 MG/2 ML Vial ONE (19:29)
[2023-10-04 19:43] LABS: Anisocytosis SLIGHT = 6-15 cells (100X) (0-5/hpf); Hematocrit 34.9 % (36.0-47.0); Hemoglobin 11.3 g/dL (12.0-16.0); Hypochromia SLIGHT = 6-15 cells (100X) (0-5/hpf); Lymphocytes 19 % (21-51); MDiff Complete? YES; Mean Corpuscular HGB CONC 32.4 g/dL (32.0-36.0); Mean Corpuscular Hemoglobin 31.9 pg (27.0-31.0); Mean Corpuscular Volume 98.4 fl (78.0-98.0); Mean Platelet Volume 5.2 fL (7.4-10.4); Monocytes 13 % (0-10); Neutrophil 64 % (42-75); Platelet Adequacy Comment Appears Increased; Platelet Count 435 10x3/uL (130-400); RBC Distribution Width 13.8 % (11.5-14.5); Red Blood Cell (RBC) Count 3.55 mill/uL (4.20-5.40); White Blood Cell (WBC) Count 13.7 10x3/uL (4.8-10.8)
[2023-10-04 19:48] LABS: ALT (SGPT) 12 U/L (8-55); AST (SGOT) 21 U/L (5-34); Albumin 2.7 g/dL (3.4-4.8); Alkaline Phosphatase 94 U/L (40-110); Anion Gap 13 mmol/L (10-20); BUN (Urea Nitrogen) 8 mg/dL (9.8-20.1); Bilirubin, Total 0.8 mg/dL (0.2-1.2); Calc. Creatinine Clearance 0 mL/min (70-130); Calcium 7.7 mg/dL (7.8-10.44); Carbon Dioxide 28 mmol/L (23-31); Chloride 103 mmol/L (98-107); Estimated GFR 90; Globulin 2.7 g/dL (2.4-3.5); Glucose 81 mg/dL (83-110); Potassium 3.6 mmol/L (3.5-5.1); Protein, Total 5.4 g/dL (5.8-8.1); Sodium 140 mmol/L (136-145); Troponin I Less than 0.010 ng/mL (< 0.028)
[2023-10-04 20:07] LABS: SARS-CoV-2 NAA Rapid Test Not Detected (NotDetected)
[2023-10-04 22:38] LABS: Troponin I Less than 0.010 ng/mL (< 0.028)
== END 2023-10-04 23:42 | disposition short-term general hospital (02) ==
LOC: MADERS 18:31
DX: I48.91 Unspecified atrial fibrillation (principal); J40 Bronchitis, not specified as acute or chronic; E11.9 Type 2 diabetes mellitus without complications; F17.210 Nicotine dependence, cigarettes, uncomplicated; E78.5 Hyperlipidemia, unspecified; Z79.899 Other long term (current) drug therapy; I10 Essential (primary) hypertension; Z79.01 Long term (current) use of anticoagulants
CPT/HCPCS: 0241U; 36415; 71045; 71275; 80053; 83605; 83880; 84484; 85025; 85379; 87070; 87205; 93005; 96361; 96374; 96375; J2405; J2930

== ENCOUNTER 2023-10-08 23:06 | Emergency (ER) | payer OTHER, MEDICAID ==
[2023-10-08 23:41] LABS: #Basophils 0.2 thou/uL (0.0-0.2); #Lymphocytes 2.7 thou/uL (1.20-3.40); #Monocytes 1.6 thou/uL (0.11-0.59); #Neutrophils 13.4 thou/uL (1.40-6.50); %Basophils 1.1 % (0.0-1.0); %Eosinophils 0.2 % (0.0-10.0); %Lymphocytes 15.3 % (21.0-51.0); %Monocytes 8.8 % (0.0-10.0); %Neutrophils 74.7 % (42.0-75.0); Hematocrit 41.9 % (36.0-47.0); Hemoglobin 13.2 g/dL (12.0-16.0); Mean Corpuscular HGB CONC 31.5 g/dL (32.0-36.0); Mean Corpuscular Hemoglobin 31.5 pg (27.0-31.0); Mean Platelet Volume 5.3 fL (7.4-10.4); Platelet Count 548 10x3/uL (130-400); RBC Distribution Width 14.7 % (11.5-14.5); White Blood Cell (WBC) Count 17.9 10x3/uL (4.8-10.8)
[2023-10-08 23:57] LABS: ALT (SGPT) 19 U/L (8-55); AST (SGOT) 25 U/L (5-34); Albumin 3.3 g/dL (3.4-4.8); Alkaline Phosphatase 109 U/L (40-110); Anion Gap 16 mmol/L (10-20); BUN (Urea Nitrogen) 9 mg/dL (9.8-20.1); Bilirubin, Total 0.4 mg/dL (0.2-1.2); Calc. Creatinine Clearance 0 mL/min (70-130); Calcium 9.5 mg/dL (7.8-10.44); Carbon Dioxide 28 mmol/L (23-31); Chloride 99 mmol/L (98-107); Estimated GFR 81; Globulin 3.7 g/dL (2.4-3.5); Glucose 69 mg/dL (83-110); Potassium 4.2 mmol/L (3.5-5.1); Sodium 139 mmol/L (136-145)
[2023-10-09] MEDS ORDERED: Sucralfate 1 GM TAB ONE (00:14)
[2023-10-09 00:18] LABS: Bilirubin Negative (Negative); Blood, Urine Negative (Negative); Clarity Clear (Clear); Glucose, Urine (Dipstick) Negative (Negative); Ketone, Urine Negative (Negative); Leukocyte Negative (Negative); Nitrite Negative (Negative); Protein, Urine (Dipstick) Negative (Neg-Trace); Specific Gravity, Urine 1.015 (1.005-1.030); Urobilinogen 0.2 mg/dL (Less than 2); pH, Urine 7.5 (5.0-9.0)
[2023-10-09] MEDS ORDERED: Sodium Chloride 0.9% 1,000 ML ONE (00:24)
[2023-10-09 00:26] LABS: CAUTI Indications for Culture Pelvic or flank pain; RBC/HPF 0-3 HPF (0-3); Squamous Epithelial 0-3 HPF (0-3); WBC/HPF 0-3 HPF (0-3)
[2023-10-09 00:27] LABS: Urine Culture Reflex No No
== END 2023-10-09 01:20 | disposition home or self-care (01) ==
LOC: MADERS 23:06
DX: I48.20 Chronic atrial fibrillation, unspecified (principal); K21.9 Gastro-esophageal reflux disease without esophagitis; I25.10 Atherosclerotic heart disease of native coronary artery without angina pectoris; E11.9 Type 2 diabetes mellitus without complications; Z86.711 Personal history of pulmonary embolism; I10 Essential (primary) hypertension; E78.5 Hyperlipidemia, unspecified; Z79.899 Other long term (current) drug therapy; Z79.01 Long term (current) use of anticoagulants; F17.210 Nicotine dependence, cigarettes, uncomplicated
CPT/HCPCS: 51701; 71045; 80053; 81001; 83605; 85025; 87040; J7050

== ENCOUNTER 2023-10-14 14:46 | Emergency (ER) | payer OTHER ==
[~2023-10-14 14:46] MED LIST changes: -Sodium Chloride 0.9% 100 ML BAG ONE
[2023-10-14 15:46] LABS: #Basophils 0.1 thou/uL (0.0-0.2); #Monocytes 1.5 thou/uL (0.11-0.59); #Neutrophils 8.6 thou/uL (1.40-6.50); %Eosinophils 0.2 % (0.0-10.0); %Lymphocytes 16.1 % (21.0-51.0); %Monocytes 12.5 % (0.0-10.0); %Neutrophils 70.3 % (42.0-75.0); Hematocrit 33.8 % (36.0-47.0); Hemoglobin 10.8 g/dL (12.0-16.0); Mean Corpuscular Hemoglobin 31.7 pg (27.0-31.0); Mean Corpuscular Volume 99.2 fl (78.0-98.0); Mean Platelet Volume 4.9 fL (7.4-10.4); Platelet Count 421 10x3/uL (130-400); Red Blood Cell (RBC) Count 3.41 mill/uL (4.20-5.40); White Blood Cell (WBC) Count 12.2 10x3/uL (4.8-10.8)
[2023-10-14] MEDS ORDERED: Ipratropium/Albuterol 3 ML NEB ONE (15:46)
[2023-10-14] MEDS ORDERED: Sodium Chloride 0.9% 500 ML ONE (15:47)
[2023-10-14] MEDS ORDERED: methylPREDNISolone Sod Succ/PF 125 MG/2 ML VIAL ONE (15:47)
[2023-10-14 15:54] LABS: INR-International Normal Ratio 1.2; Prothrombin Time 16.1 sec (12.0-14.7)
[2023-10-14 15:55] LABS: PTT 31.1 sec (22.9-36.1)
[2023-10-14 16:05] LABS: ALT (SGPT) 13 U/L (8-55); AST (SGOT) 13 U/L (5-34); Albumin 2.7 g/dL (3.4-4.8); Alkaline Phosphatase 60 U/L (40-110); Anion Gap 15 mmol/L (10-20); BUN (Urea Nitrogen) 12 mg/dL (9.8-20.1); Bilirubin, Total 0.3 mg/dL (0.2-1.2); Calc. Creatinine Clearance 0 mL/min (70-130); Calcium 7.7 mg/dL (7.8-10.44); Carbon Dioxide 27 mmol/L (23-31); Chloride 100 mmol/L (98-107); Estimated GFR 90; Globulin 2.3 g/dL (2.4-3.5); Glucose 68 mg/dL (83-110); Potassium 2.7 mmol/L (3.5-5.1); Sodium 139 mmol/L (136-145)
[2023-10-14 16:06] LABS: Troponin I Less than 0.010 ng/mL (< 0.028)
[2023-10-14] MEDS ORDERED: Potassium Chloride 20 MEQ (100 mL) BAG ONE (16:32)
[2023-10-14] MEDS ORDERED: Potassium Chloride 20 MEQ TAB ONE (16:32)
== END 2023-10-14 20:30 | disposition home or self-care (01) ==
LOC: MADERS 14:46
DX: I95.1 Orthostatic hypotension (principal); E87.6 Hypokalemia; E86.0 Dehydration; E87.8 Other disorders of electrolyte and fluid balance, not elsewhere classified; J44.9 Chronic obstructive pulmonary disease, unspecified; E11.9 Type 2 diabetes mellitus without complications; I11.0 Hypertensive heart disease with heart failure; I50.9 Heart failure, unspecified; F17.210 Nicotine dependence, cigarettes, uncomplicated
CPT/HCPCS: 0042T; 70450; 80053; 82962; 84484; 85025; 85610; 85730; 93005; 36416; 96365; 96366; 96375; 36415-59; J2930; J3480; J7030; J7620; Q9967

== ENCOUNTER 2025-01-14 12:47 | Emergency (ER) | payer OTHER | END 2025-01-14 15:30 | disposition home or self-care (01) | LOC: MADERS 12:47 | DX: S80.02XA Contusion of left knee, initial encounter (principal); S80.01XA Contusion of right knee, initial encounter; S50.02XA Contusion of left elbow, initial encounter; I10 Essential (primary) hypertension; F17.210 Nicotine dependence, cigarettes, uncomplicated; W01.0XXA Fall on same level from slipping, tripping and stumbling without subsequent striking against object, initial encounter | CPT/HCPCS: 99285 ==

== ENCOUNTER 2025-07-02 22:28 | Emergency (ER) | payer OTHER ==
[2025-07-02 22:57] LABS: Hematocrit 32.6 % (36.0-47.0); Hemoglobin 10.1 g/dL (12.0-16.0); INR-International Normal Ratio 1.3; MDiff Complete? YES; Mean Corpuscular Hemoglobin 29.4 pg (27.0-31.0); Mean Corpuscular Volume 94.5 fl (78.0-98.0); Platelet Adequacy Comment Appears Increased; Platelet Count 692 10x3/uL (130-400); Prothrombin Time 16.3 sec (12.0-14.7); Red Blood Cell (RBC) Count 3.45 mill/uL (4.20-5.40); White Blood Cell (WBC) Count 10.4 10x3/uL (4.8-10.8)
[2025-07-02 22:58] LABS: PTT 36.6 sec (22.9-36.1)
[2025-07-02 23:11] LABS: ALT (SGPT) 12 U/L (Less than 34); AST (SGOT) 18 U/L (11-34); Albumin 3.2 g/dL (3.1-4.5); Alkaline Phosphatase 138 U/L (40-110); Anion Gap 22 mmol/L (10-20); BUN (Urea Nitrogen) 14 mg/dL (9.8-20.1); Bilirubin, Total 0.3 mg/dL (0.3-1.2); Calc. Creatinine Clearance 0 mL/min (70-130); Calcium 8.7 mg/dL (7.8-10.44); Carbon Dioxide 22 mmol/L (23-31); Chloride 97 mmol/L (98-107); Globulin 2.9 g/dL (2.4-3.5); Glucose 117 mg/dL (83-110); Magnesium 1.8 mg/dL (1.6-2.6); Potassium 3.7 mmol/L (3.5-5.1); Sodium 137 mmol/L (136-145); Troponin I 0.022 ng/mL (< 0.028)
[2025-07-02 23:48] LABS: Glucose, Urine (Dipstick) Negative (Negative); Leukocyte Negative (Negative); Protein, Urine (Dipstick) 30 mg/dL (Neg-Trace); Specific Gravity, Urine 1.020 (1.005-1.030)
[2025-07-02 23:49] LABS: Bacteria/HPF Rare-Few HPF (None Seen); CAUTI Indications for Culture Pelvic or flank pain; RBC/HPF 21-50 HPF (0-3); Urine Culture Reflex No No; Yeast-Budding 2+ HPF (None Seen)
== END 2025-07-03 02:45 | disposition home or self-care (01) ==
LOC: MADERS 22:28
DX: S09.90XA Unspecified injury of head, initial encounter (principal); S40.029A Contusion of unspecified upper arm, initial encounter; E86.0 Dehydration; I25.10 Atherosclerotic heart disease of native coronary artery without angina pectoris; Z79.899 Other long term (current) drug therapy; Z79.01 Long term (current) use of anticoagulants; W18.30XA Fall on same level, unspecified, initial encounter
CPT/HCPCS: 70450; 71045; 72125; 72170; 80053; 81001; 83735; 84484; 85025; 85610; 85730; 93005; 96360; 96361; G0390

== ENCOUNTER 2025-08-02 08:57 | Emergency (ER) | payer OTHER ==
[2025-08-02] MEDS ORDERED: Iopamidol 370 76% 100 ML VIAL ONE (09:00)
[2025-08-02 09:52] LABS: INR-International Normal Ratio 1.7; Prothrombin Time 19.8 sec (12.0-14.7)
[2025-08-02 09:53] LABS: PTT 50.4 sec (22.9-36.1)
[2025-08-02 09:54] LABS: Hematocrit 28.1 % (36.0-47.0); Hemoglobin 8.7 g/dL (12.0-16.0); Mean Corpuscular Hemoglobin 27.3 pg (27.0-31.0); Mean Corpuscular Volume 88.0 fl (78.0-98.0); Platelet Count 473 10x3/uL (130-400); Red Blood Cell (RBC) Count 3.19 mill/uL (4.20-5.40); White Blood Cell (WBC) Count 20.5 10x3/uL (4.8-10.8)
[2025-08-02 09:58] LABS: Manual Diff?? YES
[2025-08-02 09:59] LABS: MDiff Complete? YES; Platelet Adequacy Comment Appears Increased
[2025-08-02 10:02] LABS: ALT (SGPT) 9 U/L (Less than 34); AST (SGOT) 14 U/L (11-34); Albumin 2.3 g/dL (3.1-4.5); Alkaline Phosphatase 73 U/L (40-110); Anion Gap 15 mmol/L (10-20); BUN (Urea Nitrogen) 8 mg/dL (9.8-20.1); Bilirubin, Total 0.4 mg/dL (0.3-1.2); Calc. Creatinine Clearance 0 mL/min (70-130); Calcium 7.8 mg/dL (7.8-10.44); Carbon Dioxide 26 mmol/L (23-31); Chloride 100 mmol/L (98-107); Globulin 3.0 g/dL (2.4-3.5); Glucose 80 mg/dL (83-110); Sodium 138 mmol/L (136-145)
[2025-08-02 10:05] LABS: Potassium 2.5 mmol/L (3.5-5.1)
[2025-08-02 10:26] LABS: Magnesium 1.5 mg/dL (1.6-2.6)
[2025-08-02 11:04] LABS: Glucose, Urine (Dipstick) Negative (Negative); Leukocyte Negative (Negative); Protein, Urine (Dipstick) 100 mg/dL (Neg-Trace); Specific Gravity, Urine 1.015 (1.005-1.030)
[2025-08-02 11:15] LABS: Bacteria/HPF Rare-Few HPF (None Seen); CAUTI Indications for Culture Alt mental st,lethar; RBC/HPF 0-3 HPF (0-3); WBC/HPF 0-3 HPF (0-3)
[2025-08-02 11:16] LABS: Urine Culture Reflex No No
== END 2025-08-02 12:59 | disposition short-term general hospital (02) ==
LOC: MADERS 08:57
DX: S32.049A Unspecified fracture of fourth lumbar vertebra, initial encounter for closed fracture (principal); S00.03XA Contusion of scalp, initial encounter; S70.02XA Contusion of left hip, initial encounter; A41.9 Sepsis, unspecified organism; J18.9 Pneumonia, unspecified organism; J90 Pleural effusion, not elsewhere classified; E87.6 Hypokalemia; E83.42 Hypomagnesemia; R29.700 NIHSS score 0; I25.10 Atherosclerotic heart disease of native coronary artery without angina pectoris; I48.91 Unspecified atrial fibrillation; F17.210 Nicotine dependence, cigarettes, uncomplicated; W19.XXXA Unspecified fall, initial encounter
CPT/HCPCS: 36415; 70450; 71260; 72125; 74177; 80053; 81001; 83605; 83735; 85025; 85610; 85730; 87040; 87428; 93005; 96365; Q9967